=== PATIENT | male | born 1995 | race Two or more races ===

== ENCOUNTER 2020-06-06 15:22 | Emergency (ER) | payer SELFPAY ==
[~2020-06-06] VITALS: Ht 177.8 cm; Wt 104.5 kg
[2020-06-06] MEDS ORDERED: IBUPROFEN 400 MG TABLET. PO ONE (16:00)
[2020-06-06] MEDS ORDERED: ACETAMINOPHEN 500 MG TABLET PO ONE (16:00)
--- NOTE | 2020-06-06 16:26 | RAD ---
EXAM: CHEST AP ONLY INDICATION: Reason: fever, cough, suspected COVID / Spl. Instructions: / History: . TECHNIQUE: Single view COMPARISON: None FINDINGS: The heart size is normal. The great vessels appear unremarkable. There is no hilar or mediastinal mass. Lungs show ovoid opacity in the superior right lung in the setting of hypoventilatory changes. There is no pleural effusion or pneumothorax. There are no significant osseous abnormalities. IMPRESSION: Right upper lobe masslike opacity, possibly representing consolidation of lung. This can be further evaluated with CT, preferably with IV contrast if clinically warranted. At minimum, radiographic follow-up to resolution is recommended. Electronically signed by: Saroj Rivas MD (06/06/2020 4:23 PM) [facility] [place]
--- NOTE | 2020-06-06 16:57 | PHYS DOC ---
Past Medical History Past Medical History: No Pertinent History Past Surgical History: No Surgical History Smoking Status: Never Smoker Alcohol Use: None General Adult EDM: Chief Complaint: FEVER HPI: HPI: Patient is a 25 year old male presented to ER today due to fever, headache, cough. Patient has been sick for about 5 days. Patient said he was exposed to a friend who tested positive for COVID-19. Patient denied any abdominal pain, no nausea vomiting. Patient denied any medical problem. No diabetic history no hypertension history. Patient is not a smoker. Review of Systems: Review of Systems: Constitutional: Positive for fever Eyes: Denies change in visual acuity. [] HENT: Denies nasal congestion or sore throat. [] Respiratory: Positive for cough, no trouble breathing Cardiovascular: Denies chest pain or edema. [] GI: Denies abdominal pain, nausea, vomiting, bloody stools or diarrhea. [] : Denies dysuria. [] Musculoskeletal: Denies back pain or joint pain. [] Integument: Denies rash. [] Neurologic: Denies headache, focal weakness or sensory changes. [] Endocrine: Denies polyuria or polydipsia. [] Lymphatic: Denies swollen glands. [] Psychiatric: Denies depression or anxiety. [] Heart Score: Risk Factors: Risk Factors: DM, Current or recent (<one month) smoker, HTN, HLP, family history of CAD, obesity. Risk Scores: Score 0 - 3: 2.5% MACE over next 6 weeks - Discharge Home Score 4 - 6: 20.3% MACE over next 6 weeks - Admit for Clinical Observation Score 7 - 10: 72.7% MACE over next 6 weeks - Early Invasive Strategies Current Medications: Current Medications Medications (Trade) Dose Ordered Sig/[facility] Start Time Stop Time Status Last Admin Dose Admin Acetaminophen (Tylenol) 1,000 mg 1X ONCE 06/06/20 16:00 06/06/20 16:01 DC Azithromycin 250 ml @ 250 mls/hr 1X ONCE 06/06/20 17:00 06/06/20 17:59 Ceftriaxone Sodium (Rocephin) 1 gm 1X ONCE 06/06/20 17:00 06/06/20 17:01 Ibuprofen (Motrin) 800 mg 1X ONCE 06/06/20 16:00 06/06/20 16:01 DC Sodium Chloride 1,000 ml @ 1,000 mls/hr 1X ONCE 06/06/20 17:00 06/06/20 17:59 Allergies: Allergies: Allergies Coded Allergies Type Severity Reaction Last Updated Verified No Known Drug Allergies 06/06/20 No Physical Exam: PE: Constitutional: Well developed, well nourished, no acute distress, non-toxic appearance. [] HENT: Normocephalic, atraumatic, bilateral external ears normal, oropharynx mois t, no oral exudates, nose normal. [] Eyes: PERRLA, EOMI, conjunctiva normal, no discharge. [] Neck: Normal range of motion, no tenderness, supple, no stridor. [] Cardiovascular:Heart rate regular rhythm, no murmur [] Lungs & Thorax: Bilateral breath sounds clear to auscultation [] Abdomen: Bowel sounds normal, soft, no tenderness, no masses, no pulsatile masses. [] Skin: Warm, dry, no erythema, no rash. [] Back: No tenderness, no CVA tenderness. [] Extremities: No tenderness, no cyanosis, no clubbing, ROM intact, no edema. [] Neurologic: Alert and oriented X 3, normal motor function, normal sensory function, no focal deficits noted. [] Psychologic: Affect normal, judgement normal, mood normal. [] Current Patient Data: Vital Signs: Vital Signs Date Time Temp Pulse Resp B/P (MAP) Pulse Ox O2 Delivery O2 Flow Rate FiO2 06/06/20 15:33 101.2 97 17 152/90 (110) 99 Room Air 101.2 EKG: EKG: [] Radiology/Procedures: Radiology/Procedures: [facility] [address] [place] [address] IMAGING REPORT Signed PATIENT: CORINA LOPEZ ACCOUNT: [id number] : 1995 LOCATION: ER AGE: 25 SEX: M EXAM STATUS: REG ER ORD. PHYSICIAN: EULALIA GIBSON DO REASON: fever, cough, suspected COVID PROCEDURE: CHEST AP ONLY EXAM: CHEST AP ONLY INDICATION: Reason: fever, cough, suspected COVID / Spl. Instructions: / History: . TECHNIQUE: Single view COMPARISON: None FINDINGS: The heart size is normal. The great vessels appear unremarkable. There is no hilar or mediastinal mass. Lungs show ovoid opacity in the superior right lung in the setting of hypoventilatory changes. There is no pleural effusion or pneumothorax. There are no significant osseous abnormalities. IMPRESSION: Right upper lobe masslike opacity, possibly representing consolidation of lung. This can be further evaluated with CT, preferably with IV contrast if clinically warranted. At minimum, radiographic follow-up to resolution is recommended. Electronically signed by: Mirza Rivas MD (06/06/2020 4:23 PM) [facility] [place] DICTATED and SIGNED BY: MIRZA RIVAS MD DATE: 06/06/20 1623 [facility] [address] [place], [place] [id number] IMAGING REPORT Signed PATIENT: CORINA LOPEZ ACCOUNT: [id number] : 1995 LOCATION: ER AGE: 25 SEX: M EXAM STATUS: REG ER ORD. PHYSICIAN: EULALIA GIBSON DO REASON: RIGHT SIDE CONSOLIDATION, FEVER PROCEDURE: CT CHEST W/CONTRAST Exam: CT of chest with contrast INDICATION: Right-sided consolidation, fever TECHNIQUE: Sequential axial images through the chest obtained following the administration of 75 mL of Omni 300 IV contrast. Sagittal and coronal reformatted images were reconstructed from the axial data and reviewed. Comparisons: Chest x-ray same day FINDINGS: Visualized portions of the thyroid are unremarkable. No enlargement is not lymph nodes. Heart size is normal. No pericardial effusion. Thoracic aorta has a normal course and caliber. Pulmonary artery is not enlarged. Airways are patent. There is a rounded areas of consolidation/ground glass opacity seen in the right and left upper lobes. Largest areas in the right upper lobe measuring approximately 3.7 x 2.4 cm. No pleural effusion or thickening. Visualized upper abdomen is unremarkable. No suspicious osseous lesions or acute fractures. IMPRESSION: Several rounded areas of consolidation/groundglass opacity in the right and left upper lobes these are favored to be infectious or inflammatory in etiology. Consider atypical/viral causes as well as septic emboli. Follow-up imaging posttreatment to ensure resolution is recommended. Exposure: One or more of the following in the visualized dose reduction techniques were utilized for this examination: 1. Automated exposure control 2. Adjustment of the MA and/or KV according to patient size 3. Use of iterative of reconstructive technique Electronically signed by: Aubrie Grewal MD (06/06/2020 6:20 PM) [id number] DICTATED and SIGNED BY: AUBRIE GREWAL MD DATE: 06/06/20 182 Course & Med Decision Making: Course & Med Decision Making Pertinent Labs and Imaging studies reviewed. (See chart for details) Patient is a 25-year-old male with fever, chest x-ray and CT scan show consolidation suspicious for COVID-19 pneumonia. Patient vital signs are stable, his oxygen saturation at [place] is on room air. Patient is in no acute distress. Patient will be discharged home with prednisone and Zithromax. Patient was given instruction about COVID-19 isolation and quarantine in [place]. Dragon Disclaimer: Dragon Disclaimer: This electronic medical record was generated, in whole or in part, using a voice recognition dictation system. Departure Departure Impression: Primary Impression: Pneumonia Additional Impression: Suspected 2019-nCoV infection Disposition: HOME, SELF-CARE Condition: STABLE Referrals: NO PCP (PCP) please follow up with your doctor next week Patient Instructions: Pneumonia, Adult Additional Instructions: Definicin Se le realiz la prueba de deteccin del COVID-19 o se le diagnostic dicha enfermedad. Es vandana infeccin ocasionada por un nuevo tipo de coronavirus. En la mayora de los casos, el COVID-19 provoca sntomas similares a los del resfriado. En algunas personas, puede ocasionar sntomas ms graves, neno problemas respiratorios. No existe un tratamiento para el virus COVID-19. El cuerpo elimina la infeccin con el tiempo. El cuidado personal ayuda a aliviar el malestar. Pasos que debe seguir 1. Cuidados personales Descanse cuando sea necesario. Los hbitos saludables pueden ayudarlo a sentirse mejor. Algunas medidas para lograr cambios incluyen lo siguiente: - Elija alimentos saludables, neno frutas y verduras. Ruthie abundante cantidad de agua ciara todo el da. - Duerma gabbi por la noche. - Si fuma, intente no hacerlo. Forada ayudar a mejorar la respiracin. - Evite el alcohol. 2. Mantenga sanos a los dems El virus puede contagiarse a otras personas. Cada vez que estornuda o tose, se liberan gotitas. Las gotitas pueden entrar en la boca, la nariz o los ojos de las personas que se encuentran cerca de usted y ocasionar la infeccin. Para reducir las probabilidades de contagiar el virus COVID-19 a otros, tenga en cuenta lo siguiente: - Qudese en casa el tiempo que el mdico se lo indique. Es posible que deba quedarse en casa hasta que la enfermedad desaparezca. Salga nicamente para recibir atencin mdica o en kelvin de urgencia. - Evite las reas pblicas, los eventos o el transporte pblico. No reanude las actividades laborales o escolares hasta que el mdico lo autorice. - Llame previamente si necesita asistir a un centro mdico. Avise que es posible que haya contrado COVID-19. Forada ayudar a que le indiquen adonde debe dirigirse. Jud pueden pedirle que use vandana mscara facial cuando vaya al consultorio. Si llama a los servicios de asistencia mdica de urgencias, avseles que es posible que haya contrado COVID-19. Mientras est en casa: - Evite el contacto directo con otras personas. Mantngase a vandana distancia aproximada de 2 metros. Si es posible, pasen la mayor parte del tiempo en vega separadas. - Use vandana mscara facial si estar en contacto directo con otras personas, por ejemplo, si compartir vandana habitacin o un vehculo. - Pida a alguien que limpie las superficies comunes de la casa. Limpie picaportes, mesadas y lavamanos con limpiadores domsticos todos los person. - Al toser o estornudar, cbrase con un pauelo de papel. Despus de usarlo, deschelo de inmediato. Si no tiene un pauelo de papel, tosa o estornude en el pliegue del codo. - Lvese las janki con frecuencia. Lvese las janki despus de estornudar o toser. Lvese con agua y jabn ciara, al menos, 20 segundos. Si no dispone de agua y jabn, use un limpiador de janki a base de alcohol. - No cocine para otros. Evite compartir objetos personales, neno tenedores, cucharas o cepillos de dientes. - Mientras est enfermo, evite el contacto directo con las mascotas. No hay indicios de si el virus se transmite a las mascotas. Esta es vandana medida de seguridad que debe tenerse en cuenta hasta que se sepa ms acerca de shruti virus. El aislamiento puede ser frustrante. La interaccin social puede ayudar. Mantngase en contacto con amigos y familiares por telfono u otros medios tecnolgicos. Puede interactuar con otras personas en el hogar, jayda mantenga vandana distancia herron de aproximadamente 2 metros. Seguimiento Las pruebas para confirmar la presencia del COVID-19 pueden demorar algunos person . Es posible que deba seguir los pasos mencionados anteriormente hasta que estn los resultados de las pruebas. Lo llamarn del consultorio mdico para saber si floyd habido algn cambio en baeza herson. Tambin le avisarn cuando pueda volver a estar cerca de otras personas. Problemas a los que debe estar atento Comunquese con el mdico si no se recupera segn lo previsto o si tiene problemas neno los siguientes: - Dificultad para respirar - Dolor de pecho - Empeoramiento de los sntomas Si catrachito que tiene vandana urgencia, llame a los servicios de asistencia mdica de urgencias de inmediato. As taken from [facility] Azithromycin (ZITHROMAX) 250 Mg Tablet 1 PKG PO UD, #6 TAB Prov: EULALIA GIBSON DO 06/06/20 Prednisone (PREDNISONE ) 10 Mg Tablet 5 TAB PO DAILY for 7 Days, #35 TAB 0 Refills Prov: EULALIA GIBSON DO 06/06/20 Justicifation of Admission Dx: Justifications for Admission: Justification of Admission Dx: N/A EULALIA GIBSON DO Jun 06, 2020 16:57
[2020-06-06] MEDS ORDERED: AZITHRMYCN 500MG IVPB FOR OMNI 250 ML IV ONE (17:00)
[2020-06-06] MEDS ORDERED: cefTRIAXone IV Push 1 GM VIAL. IVP ONE (17:00)
[2020-06-06] MEDS ORDERED: IV NORMAL SALINE 1000ML BAG 1,000 ML IV ONE (17:00)
[2020-06-06 17:19] LABS: BASO % 0 % (0-3); EOS % 0 % (0-3); HEMATOCRIT 49.9 % (39.0-53.0); HEMOGLOBIN 17.3 g/dL (13.0-17.5); LYMPH # 1.9 x10^3/uL (1.0-4.8); LYMPH % 20 % (24-48); MEAN CORPUSCULAR HEMOGLOBIN 30 pg (25-35); MEAN CORPUSCULAR HGB CONC 35 g/dL (31-37); MEAN CORPUSCULAR VOLUME 88 fL (79-100); MONO % 10 % (0-9); NEUT # 6.7 x10^3/uL (1.8-7.7); NEUT % 70 % (31-73); PLATELET COUNT 235 x10^3/uL (140-400); RED BLOOD COUNT 5.69 x10^6/uL (4.30-5.70); RED CELL DISTRIBUTION WIDTH 13.7 % (11.5-14.5); WHITE BLOOD COUNT 9.7 x10^3/uL (4.0-11.0)
[2020-06-06 17:28] LABS: PROTHROMBIN TIME PATIENT 12.4 SEC (11.7-14.0)
[2020-06-06 17:29] LABS: CALCIUM 8.7 mg/dL (8.5-10.1); CREATININE 1.2 mg/dL (0.7-1.3); GFR 73.8; POTASSIUM 3.9 mmol/L (3.5-5.1)
[2020-06-06 17:32] LABS: D-DIMER 0.46 ug/mlFEU (0.00-0.50)
[2020-06-06 17:35] LABS: ALBUMIN 4.2 g/dL (3.4-5.0); ALBUMIN/GLOBULIN RATIO 1.1 (1.0-1.7); TOTAL BILIRUBIN 0.4 mg/dL (0.2-1.0)
[2020-06-06] MEDS ORDERED: IOHEXOL 300 MG/ML 100ML VIAL. IV ONE (18:00)
--- NOTE | 2020-06-06 18:23 | RAD ---
Exam: CT of chest with contrast INDICATION: Right-sided consolidation, fever TECHNIQUE: Sequential axial images through the chest obtained following the administration of 75 mL of Omni 300 IV contrast. Sagittal and coronal reformatted images were reconstructed from the axial data and reviewed. Comparisons: Chest x-ray same day FINDINGS: Visualized portions of the thyroid are unremarkable. No enlargement is not lymph nodes. Heart size is normal. No pericardial effusion. Thoracic aorta has a normal course and caliber. Pulmonary artery is not enlarged. Airways are patent. There is a rounded areas of consolidation/ground glass opacity seen in the right and left upper lobes. Largest areas in the right upper lobe measuring approximately 3.7 x 2.4 cm. No pleural effusion or thickening. Visualized upper abdomen is unremarkable. No suspicious osseous lesions or acute fractures. IMPRESSION: Several rounded areas of consolidation/groundglass opacity in the right and left upper lobes these are favored to be infectious or inflammatory in etiology. Consider atypical/viral causes as well as septic emboli. Follow-up imaging posttreatment to ensure resolution is recommended. Exposure: One or more of the following in the visualized dose reduction techniques were utilized for this examination: 1. Automated exposure control 2. Adjustment of the MA and/or KV according to patient size 3. Use of iterative of reconstructive technique Electronically signed by: Aubrie Shoemaker MD (06/06/2020 6:20 PM) [id number]
[2020-06-06] MEDS ORDERED: AZIT250T PO (18:42)
[2020-06-06] MEDS ORDERED: PRED-220 PO (18:42)
[2020-06-06] MEDS ORDERED: methylPREDNISolone SOD SUCC PF 125 MG/2 ML VIAL. IV ONE (19:00)
[2020-06-06 19:30] VITALS: BP 134/82
--- NOTE | 2020-06-08 11:55 | NUR ---
IP: Pt notified of COVID + results via Mother. Pt does not speak [place]. Permission give by pt to give results to her. Both verbalized understanding. Informed them to self quarantine for 14 days and the health department would be in contact.
== END 2020-06-06 19:30 | disposition home or self-care (01) ==
LOC: ER 15:22
DX: U07.1 COVID-19 (principal); J18.9 Pneumonia, unspecified organism; R50.9 Fever, unspecified; R05 Cough; R51 Headache
CPT/HCPCS: 36415; 71045; 71260; 80053; 83605; 85025; 85379; 85610; 85730; 87040; 96365; 96375; 99285; C9803; J0456; J0696; J2930; J7030; Q9967; U0003

== ENCOUNTER 2020-06-09 05:09 | Emergency (ER) | payer SELFPAY ==
[~2020-06-09] VITALS: Ht 172.7 cm; Wt 90.9 kg
[~2020-06-09 05:09] MED LIST: AZIT250T PO; PRED-220 PO
[2020-06-09] MEDS ORDERED: PROCHLORPERAZINE 10 MG/2 ML VIAL. IM ONE (06:45)
[2020-06-09] MEDS ORDERED: KETOROLAC 60 MG/2 ML VIAL. IM ONE (06:45)
[2020-06-09] MEDS ORDERED: diphenhydrAMINE 50 MG/ML VIAL IM ONE (06:45)
[2020-06-09] MEDS ORDERED: PROC10TA57 PO (07:18)
--- NOTE | 2020-06-09 07:18 | PHYS DOC ---
Past Medical History Past Medical History: No Pertinent History Past Surgical History: No Surgical History Smoking Status: Never Smoker Alcohol Use: None General Adult EDM: Chief Complaint: Headache HPI: HPI: Patient is a 25 year old with a chief complaint of headache. Patient has been sick for approximately 8 days. Patient has had a fever and a cough which is improved with his denies shortness of breath. Patient was seen here 3 days ago and just got back his COVID-19 results which was positive. Patient states he still having fever and has some intermittent headache with dizziness. Patient states the pain is worse with fever. Patient took some Tylenol and ibuprofen with minimal relief. Patient denies any vomiting or diarrhea. Pain is described as moderate and nonradiating global Review of Systems: Review of Systems: Constitutional: Complains of fever Eyes: Denies change in visual acuity. [] HENT: Has some nasal congestion Respiratory: Complains of mild cough but no shortness of breath Cardiovascular: Denies chest pain or edema. [] GI: Denies abdominal pain, nausea, vomiting, bloody stools or diarrhea. [] : Denies dysuria. [] Musculoskeletal: Complains of myalgias Integument: Denies rash. [] Neurologic: Complains of headache but no, focal weakness or sensory changes. [] Endocrine: Denies polyuria or polydipsia. [] Lymphatic: Denies swollen glands. [] Psychiatric: Denies depression or anxiety. [] Heart Score: Risk Factors: Risk Factors: DM, Current or recent (<one month) smoker, HTN, HLP, family history of CAD, obesity. Risk Scores: Score 0 - 3: 2.5% MACE over next 6 weeks - Discharge Home Score 4 - 6: 20.3% MACE over next 6 weeks - Admit for Clinical Observation Score 7 - 10: 72.7% MACE over next 6 weeks - Early Invasive Strategies Current Medications: Current Medications Medications (Trade) Dose Ordered Sig/Praful Start Time Stop Time Status Last Admin Dose Admin Diphenhydramine HCl (Benadryl) 25 mg 1X ONCE 06/09/20 06:45 06/09/20 06:46 DC 06/09/20 06:50 25 MG Ketorolac Tromethamine (Toradol Im) 60 mg 1X ONCE 06/09/20 06:45 06/09/20 06:46 DC 7/29/20 06:49 60 MG Prochlorperazine Edisylate (Compazine) 10 mg 1X ONCE 06/09/20 06:45 06/09/20 06:46 DC 06/09/20 06:49 10 MG Allergies: Allergies: Allergies Coded Allergies Type Severity Reaction Last Updated Verified No Known Drug Allergies 06/06/20 No Physical Exam: PE: Constitutional: Well developed, well nourished, no acute distress, non-toxic appearance. HENT: No trismus, external ears normal Eyes: Conjunctiva clear, EOMI Neck: Normal range of motion, no tenderness, supple, no stridor. No meningeal signs Cardiovascular: Regular rate/rhythm, peripheral pulse intact, EXTRUSION MANAGER intact Lungs & Thorax: No respiratory distress Abdomen: No distension Skin: Diffuse: Intact, no rash Back: Full ROM Extremities: Normal inspection, no edema Neurologic: Alert and oriented X 3, normal motor function, , no focal deficits noted. Psychologic: Affect normal, judgement normal, mood normal. Current Patient Data: Vital Signs: Vital Signs Date Time Temp Pulse Resp B/P (MAP) Pulse Ox O2 Delivery O2 Flow Rate FiO2 06/09/20 05:40 99.1 90 20 139/81 (100) 99 Room Air 99.1 EKG: EKG: [] Radiology/Procedures: Radiology/Procedures: [] Course & Med Decision Making: Course & Med Decision Making Pertinent Labs and Imaging studies reviewed. (See chart for details) [] Patient nontoxic-appearing no respiratory distress no meningeal signs normal neurological exam. Slight symptoms most likely due to his COVID-19. Patient is stable for discharge. Return precautions given doubt meningitis Jeyson Disclaimer: Jeyson Disclaimer: This electronic medical record was generated, in whole or in part, using a voice recognition dictation system. Departure Departure Impression: Primary Impression: COVID-19 Additional Impression: Headache Disposition: 01 HOME, SELF-CARE Condition: STABLE Referrals: NO PCP (PCP) 2-3 days pcp 2-3 days Patient Instructions: Fever, General Headache Without Cause Additional Instructions: EMERGENCY DEPARTMENT GENERAL DISCHARGE INSTRUCTIONS THANK YOU for coming to [facility] Emergency Department (ED) today and trusting us with your care. We trust that you had a positive experience in our Emergency Department. If you wish to speak to the department Management you can contact the anthropology department chair at . YOUR FOLLOW UP INSTRUCTIONS ARE FOLLOWS: Do you have a private doctor? If you do not have a private doctor, please ask for a resource list of physicians or clinics that may be able to assist you with follow up care. The Emergency Physician has interpreted your x-rays. The X-ray specialist will also review them. If there is a change in the findings you will be notified in 48 hours when at all possible. A lab test or lab culture may have been done, your results will be reviewed and you will be notified if you need a change in treatment. ADDITIONAL INSTRUCTIONS AND INFORMATION Your care today has been supervised by a physician who is specially trained in emergency care. Many problems require more than one evaluation for a complete diagnosis and treatment. We recommend that you schedule your follow up appointment as recommended to ensure complete treatment of your illness or injury. If you are unable to obtain follow up care and continue to have a problem, or if your condition worsens we recommend that you return to the ED. We are not able to safely determine your condition over the phone nor are we able to give sound medical advice over the phone. For these safety reasons, if you call for medical advice we will ask you to come to the ED for further evaluation If you have any questions regarding these discharge instructions please call the ED at . SAFETY INFORMATION In the interest of safety, wellness, and injury prevention; we encourage you to wear your seatbelt, if you smoke; quit smoking, and we encourage your family to use protective helmet for bicycling and other sporting events that present an increased risk for head injury. IF YOUR SYMPTOMS WORSEN OR NEW SYMPTOMS DEVELOP, OR YOU HAVE CONCERNS ABOUT YOUR CONDITION; OR IF YOUR CONDITION WORSENS WHILE YOU ARE WAITING FOR YOUR FOLLOW UP APPOINTMENT; EITHER CONTACT YOUR PRIMARY CARE DOCTOR, THE PHYSICIAN WHOSE NAME AND NUMBER YOU WERE GIVEN, OR RETURN TO THE ED IMMEDIATELY. Definicin Se le realiz la prueba de deteccin del COVID-19 o se le diagnostic dicha enfermedad. Es vandana infeccin ocasionada por un nuevo tipo de coronavirus. En la mayora de los casos, el COVID-19 provoca sntomas similares a los del resfriado. En algunas personas, puede ocasionar sntomas ms graves, neno problemas respiratorios. No existe un tratamiento para el virus COVID-19. El cuerpo elimina la infeccin con el tiempo. El cuidado personal ayuda a aliviar el malestar. Pasos que debe seguir 1. Cuidados personales Descanse cuando sea necesario. Los hbitos saludables pueden ayudarlo a sentirse mejor. Algunas medidas para lograr cambios incluyen lo siguiente: - Elija alimentos saludables, neno frutas y verduras. Ruthie abundante cantidad de agua ciara todo el da. - Duerma gabbi por la noche. - Si fuma, intente no hacerlo. Aneth ayudar a mejorar la respiracin. - Evite el alcohol. 2. Mantenga sanos a los dems El virus puede contagiarse a otras personas. Cada vez que estornuda o tose, se liberan gotitas. Las gotitas pueden entrar en la boca, la nariz o los ojos de las personas que se encuentran cerca de usted y ocasionar la infeccin. Para reducir las prob abilidades de contagiar el virus COVID-19 a otros, tenga en cuenta lo siguiente: - Qudese en casa el tiempo que el mdico se lo indique. Es posible que deba quedarse en casa hasta que la enfermedad desaparezca. Salga nicamente para recibir atencin mdica o en kelvin de urgencia. - Evite las reas pblicas, los eventos o el transporte pblico. No reanude las actividades laborales o escolares hasta que el mdico lo autorice. - Llame previamente si necesita asistir a un centro mdico. Avise que es pos ible que haya contrado COVID-19. Aneth ayudar a que le indiquen adonde debe dirigirse. Jud pueden pedirle que use vandana mscara facial cuando vaya al consultorio. Si llama a los servicios de asistencia mdica de urgencias, avseles que es posible que haya contrado COVID-19. Mientras est en casa: - Evite el contacto directo con otras personas. Mantngase a vandana distancia aproximada de 2 metros. Si es posible, pasen la mayor parte del tiempo en vega separadas. - Use vandana mscara facial si estar en contacto directo con otras personas, por ejemplo, si compartir vandana habitacin o un vehculo. - Pida a alguien que limpie las superficies comunes de la casa. Limpie picaportes, mesadas y lavamanos con limpiadores domsticos todos los person. - Al toser o estornudar, cbrase con un pauelo de papel. Despus de usarlo, deschelo de inmediato. Si no tiene un pauelo de papel, tosa o estornude en el pliegue del codo. - Lvese las janki con frecuencia. Lvese las janki despus de estornudar o toser. Lvese con agua y jabn ciara, al menos, 20 segundos. Si no dispone de agua y jabn, use un limpiador de janki a base de alcohol. - No cocine para otros. Evite compartir objetos personales, neno tenedores, cucharas o cepillos de dientes. - Mientras est enfermo, evite el contacto directo con las mascotas. No hay indicios de si el virus se transmite a las mascotas. Esta es vandana medida de seguridad que debe tenerse en cuenta hasta que se sepa ms acerca de shruti virus. El aislamiento puede ser frustrante. La interaccin social puede ayudar. Mantngase en contacto con amigos y familiares por telfono u otros medios tecnolgicos. Puede interactuar con otras personas en el hogar, jayda mantenga vandana distancia herron de aproximadamente 2 metros. Seguimiento Las pruebas para confirmar la presencia del COVID-19 pueden demorar algunos person. Es posible que deba seguir los pasos mencionados anteriormente hasta que estn los resultados de las pruebas. Lo llamarn del consultorio mdico para saber si floyd habido algn cambio en baeza herson. Tambin le avisarn cuando pueda volver a estar cerca de otras personas. Problemas a los que debe estar atento Comunquese con el mdico si no se recupera segn lo previsto o si tiene problemas neno los siguientes: - Dificultad para respirar - Dolor de pecho - Empeoramiento de los sntomas Si catrachito que tiene vandana urgencia, llame a los servicios de asistencia mdica de urgencias de inmediato. As taken from [employer] Prochlorperazine Maleate (Compazine) 10 Mg Tablet 10 MG PO Q8-12HRS PRN for HEADACHE, #20 TAB Prov: KARYNA GUDINO MD 06/09/20 Justicifation of Admission Dx: Justifications for Admission: Justification of Admission Dx: N/A KARYNA GUDINO MD Jun 09, 2020 07:18
[2020-06-09 08:21] VITALS: BP 160/93
== END 2020-06-09 08:21 | disposition home or self-care (01) ==
LOC: ER 05:09
DX: U07.1 COVID-19 (principal); R50.9 Fever, unspecified; R51 Headache; R05 Cough
CPT/HCPCS: 96372; 99284; J0780; J1200; J1885

== ENCOUNTER 2020-06-11 02:44 | Emergency (ER) | payer SELFPAY ==
[~2020-06-11] VITALS: Ht 172.7 cm; Wt 90.9 kg
[~2020-06-11 02:44] MED LIST changes: +PROC10TA57 PO
[2020-06-11 03:00] VITALS: BP 159/89
--- NOTE | 2020-06-11 03:59 | RAD ---
Chest AP portable at 0327: Reason for examination: Covid. Pneumonia. Comparison is made to previous study dated 06/06/2020. The heart size is normal. Mediastinum is unremarkable. Lung reveles show presence of patchy infiltrates bilaterally. There has been progression since previous exam. No pleural effusions or pneumothorax are seen. No acute bony abnormalities are seen. IMPRESSION: Patchy bilateral infiltrates with worsening since previous exam. Electronically signed by: Evonne Iqbal MD (06/11/2020 3:56 AM) [id number]
[2020-06-11] MEDS ORDERED: VENTOLIN HFA18 GM INH (04:06)
[2020-06-11] MEDS ORDERED: BENZ100C PO (04:06)
--- NOTE | 2020-06-11 04:06 | PHYS DOC ---
Past Medical History Past Medical History: Other Additional Past Medical Histor: COVID-19 Past Surgical History: No Surgical History Smoking Status: Never Smoker Alcohol Use: None General Adult EDM: Chief Complaint: SHORTNESS OF BREATH HPI: HPI: Patient is a 25 year old male who presents with continued shortness of breath and cough. He has been sick for the last couple of weeks. He tested positive for raymond virus earlier this week. He continues to have symptoms and is not feeling well. They came in today because his symptoms have not improved. He is able to walk around without any difficulty and has continued to do his normal activities at home. Review of Systems: Review of Systems: General: reports fever, chills, sweats, fatigue Eyes: Denies drainage, blurred vision, eye redness HENT: Denies rhinorrhea, sore throat, earache Respiratory: reports cough, shortness of breath, wheezing Cardiac: Denies edema, palpitations, chest pain GI: Denies abdominal pain, Nausea, vomiting MSK: Denies back pain, neck pain Skin: Denies rash, jaundice Neuro: Denies headache, dizziness Psychiatric: Denies SI/HI Heart Score: Risk Factors: Risk Factors: DM, Current or recent (<one month) smoker, HTN, HLP, family history of CAD, obesity. Risk Scores: Score 0 - 3: 2.5% MACE over next 6 weeks - Discharge Home Score 4 - 6: 20.3% MACE over next 6 weeks - Admit for Clinical Observation Score 7 - 10: 72.7% MACE over next 6 weeks - Early Invasive Strategies Allergies: Allergies: Allergies Coded Allergies Type Severity Reaction Last Updated Verified No Known Drug Allergies 06/06/20 No Physical Exam: PE: General: Awake, alert, NAD. Well Nourished, well hydrated. Cooperative HEENT: Atraumatic, EOMI, PERRL, airway patent, moist oral mucosa Neck: Supple, trachea midline Respiratory: CTA bilaterally, normal effort, no wheezing/crackles CV: RRR, no murmur, cap refill <2 GI: Soft, nondistended, nontender, no masses MSK: No obvious deformities Skin: Warm, dry, intact Neuro: A&O x3, speech NL, sensory and motor grossly intact, no focal deficits Psych: Normal affect, normal mood, not suicidal or homicidal Current Patient Data: Vital Signs: Vital Signs Date Time Temp Pulse Resp B/P (MAP) Pulse Ox O2 Delivery O2 Flow Rate FiO2 06/11/20 03:00 99.0 111 18 154/88 (110) 97 99.0 EKG: EKG: [] Radiology/Procedures: Radiology/Procedures: [] Course & Med Decision Making: Course & Med Decision Making Pertinent Labs and Imaging studies reviewed. (See chart for details) Patient is a 25-year-old male who presents to the emergency room with continued symptoms of coronavirus. Patient is oxygenating well here in the emergency room and overall appears very well. Chest x-ray appears similar to x-ray from previous. Labs will not be repeated at this time as he just had labs 2 days ago[address] We will place him on an inhaler and cough medicine. We discussed continued quarantine. Patient's test results and vitals while in the ED were fully reviewed and discussed with the patient. Patient is stable and at this time does not need admission to the hospital. We have discussed strict return precautions and the importance of following up with their Primary Care Physicia n. Patient stated understanding and was given an opportunity to ask any questions. Patient is in agreement with plan. Jeyson Disclaimer: Sell My Times[employer] NOW Disclaimer: This electronic medical record was generated, in whole or in part, using a voice recognition dictation system. Departure Departure Impression: Primary Impression: Coronavirus infection Disposition: 01 HOME, SELF-CARE Condition: STABLE Referrals: NO PCP (PCP) Patient Instructions: Shortness of Breath Additional Instructions: [facility] you for [facility]. We appreciate you trusting us with your care. If any additional problems come up please don't hesitate to return to visit us. Follow up with your primary care provider so they can plan additional care if needed and know about the problem that you had today. If symptoms worsen come back to the Emergency Department. Any concerning symptoms that start such as chest pain, shortness of air, weakness or numbness on one side of the body, running high fevers or any other concerning symptoms return to the ER. You have a viral syndrome which may include symptoms like muscle aches, fevers, chills, runny nose, cough, sneezing, sore throat, nausea, vomiting, or diarrhea. One of the potential viruses that you may have is SARS-CoV-2, the virus that causes COVID-19, also known as the Coronavirus. You are just as likely to have a different viral infection such as the common cold, flu, etc. Most patients with the Coronavirus have mild symptoms and recover on their own. Resting, staying hydrated, and sleep based on known cases can be helpful. As of todays visit, you are well enough to go home and treat your symptoms with oral fluids and over the counter medications. Coronavirus testing is not performed on most people with mild symptoms who are being discharged from the emergency department. If Coronavirus testing was performed today the results will not be available for possibly up to 3-4 days. If your result is positive you will be contacted. Please follow the following precautions at home: 1. Stay home except to get medical care. 2. As advised by the CDC, we recommend that you stay in your home and minimize contact with other people. We do not want you to spread the infection. 3. Those who are older or have significant medical issues may have more severe symptoms from this infection. We recommend self-isolation FOR AT LEAST 7 DAYS after your 1st day of symptoms. AFTER you feel better please wait AT LEAST ANOTHER WEEK before returning to regular activities and being around other people. 4. IF you become sicker and have difficulty breathing, chest pain, are unable to eat/drink, severe vomiting, diarrhea, or weakness you may need to return to the Emergency Department. 5. You should restrict activities outside of your home, except for getting medical care. DO NOT go to work, school, or public areas. Avoid using public transportation, ride sharing, or taxis. 6. Separate yourself from other people in your home. You should use a separate bathroom if possible. 7. Avoid sharing personal household items such as dishes, cups, eating utensils, towels, etc. 8. Clean all high touch surfaces every day (door knobs, counter tops, etc). Use a household cleaning spray or wipe per label instructions. 9. Clean your hands often. Wash your hands with soap and water for at least 20 seconds. 10. Cover your mouth and nose when you cough or sneeze. 11. Throw used tissues in the trash and immediately wash your hands. For additional resources please visit the CDC website or the [facility] ([phone]), you may also call 211 for further information. Scripts Benzonatate (TESSALON PERLE) 100 Mg Capsule 1 CAP PO TID for cough, #21 CAP Prov: MAYELIN ADDISON MD 06/11/20 Albuterol Sulfate (VENTOLIN HFA INHALER) 18 Gm Hfa.aer.ad 2 PUFF INH Q4HRS PRN for SHORTNESS OF BREATH, #1 INHALER 0 Refills Prov: MAYELIN ADDISON MD 06/11/20 Justicifation of Admission Dx: Justifications for Admission: Justification of Admission Dx: No MAYELIN ADDISON MD Jun 11, 2020 04:06
== END 2020-06-11 04:30 | disposition home or self-care (01) ==
LOC: ER 02:44
DX: U07.1 COVID-19 (principal)
CPT/HCPCS: 71045; 99283

== ENCOUNTER 2020-06-13 02:47 | Emergency (ER) | payer SELFPAY ==
[~2020-06-13] VITALS: Ht 177.8 cm; Wt 82.0 kg
[~2020-06-13 02:47] MED LIST changes: +BENZ100C PO; +VENTOLIN HFA18 GM INH
[2020-06-13] MEDS ORDERED: IV NORMAL SALINE 1000ML BAG 1,000 ML IV ONE (03:30)
[2020-06-13] MEDS ORDERED: DEXAMETHASONE SOD PHOS 4 MG/ML VIAL IVP ONE (03:30)
[2020-06-13] MEDS ORDERED: ACETAMINOPHEN 500 MG TABLET PO ONE (03:30)
--- NOTE | 2020-06-13 04:03 | PHYS DOC ---
Past Medical History Past Medical History: Other Additional Past Medical Histor: COVID-19 Past Surgical History: No Surgical History Smoking Status: Never Smoker Alcohol Use: None Drug Use: None General Adult EDM: Chief Complaint: COUGH HPI: HPI: 25-year-old male presents with report of continued cough, fever, shortness of breath which has progressively worsened over the last several days. Patient was tested positive for COVID 19 last week. Patient has been seen multiple times here in the emergency department for same. Patient reports cough has continued. Patient reports he has been taking Tylenol and ibuprofen for his fever however continues to be febrile. Patient does report positive sick contacts at work. Denies leg swelling or calf tenderness. Reports some chest discomfort. Review of Systems: Review of Systems: Constitutional: Reports fever, chills, and generalized malaise Eyes: Denies redness or eye pain HENT: Denies nasal congestion or sore throat Respiratory: Reports cough and shortness of breath Cardiovascular: Denies chest pain; reports chest discomfort GI: Denies abdominal pain, nausea, or vomiting : Denies dysuria or hematuria Musculoskeletal: Denies back pain or joint pain Integument: Denies rash or skin lesions Neurologic: Denies headache or sensory changes; reports generalized weakness Complete systems were reviewed and found to be within normal limits, except as documented in this note. Current Medications: Current Medications Medications (Trade) Dose Ordered Sig/Praful Start Time Stop Time Status Last Admin Dose Admin Acetaminophen (Tylenol) 500 mg 1X ONCE 06/13/20 03:30 06/13/20 03:31 DC 06/13/20 03:51 500 MG Dexamethasone Sodium Phosphate (Decadron) 10 mg 1X ONCE 06/13/20 03:30 06/13/20 03:31 DC 06/13/20 03:51 10 MG Sodium Chloride 1,000 ml @ 1,000 mls/hr 1X ONCE 06/13/20 03:30 06/13/20 04:29 06/13/20 03:51 1,000 MLS/HR Allergies: Allergies: Allergies Coded Allergies Type Severity Reaction Last Updated Verified No Known Drug Allergies 06/06/20 No Physical Exam: PE: Constitutional: Well developed, well nourished, no acute distress, non-toxic appearance HENT: Normocephalic, atraumatic Eyes: Conjunctiva normal, no discharge Neck: Normal range of motion, supple Lungs & Thorax: Tachypnea, equal chest rise and fall Abdomen: Soft, no tenderness Skin: Warm, diaphoretic, no erythema, no rash Extremities: No tenderness, ROM intact, no edema Neurologic: Alert and oriented X 3, no focal deficits noted Psychologic: Affect normal, judgment normal EKG: EKG: @0337 NSR at 92bpm, NO ST elevation, QRS 96ms, QT/QTc 340/425ms Radiology/Procedures: Radiology/Procedures: PROCEDURE: CT ANGIOGRAPHY CHEST INDICATION: Reason: COVID positive, worsening dyspnea r/o PE, OMNI 350, 90 ML IV / Spl. Instructions: / History: COMPARISON: Chest x-ray from June 11, 2020 TECHNIQUE: Axial CT images obtained through the chest. Intravenous contrast utilized. Angiogram 3D images processed per protocol. One or more of the following individualized dose reduction techniques were utilized for this examination: 1. Automated exposure control; 2. Adjustment of the mA and/or kV according to patient size; 3. Use of iterative reconstruction technique. FINDINGS: Multifocal opacities throughout the bilateral lungs including groundglass and more focal alveolar component. No evidence of pneumothorax. Partially visualized liver is low density. Nonspecific but can be seen with fatty infiltration. There are some scattered mildly enlarged lymph nodes within the mediastinum. Ascending thoracic aorta is obscured by motion without aneurysm seen in the visualized portions of thoracic aorta. Mild wedging of a couple of the lower thoracic vertebral bodies. IMPRESSION: No embolus in the main, right main or left main pulmonary artery but nondiagnostic more peripherally secondary to severe motion. Multifocal opacities throughout the bilateral lungs which could be infectious in nature. Lymphadenopathy within the mediastinum and hilum. Could be reactive to the pulmonic process but follow-up could be obtained to ensure this appropriately resolves. Liver is low density which can be seen with fatty infiltration. Electronically signed by: Ori Raymond MD (06/13/2020 6:13 AM) [id number] Course & Med Decision Making: Course & Med Decision Making Pertinent Labs and Imaging studies reviewed. (See chart for details) Patient with known COVID-19 presents with continued worsening of symptoms including fever. Fever addressed upon arrival. Patient also complaining of some chest discomfort but denies pain. No cardiac risk factors. Symptoms are related to his respiratory illness. Labs obtained and posted to chart. EKG stable. CTA obtained for rule out PE. No findings consistent for PE noted. Patient with continued imaging findings consistent for COVID-19. Sats stable throughout ER stay. Incentive spirometer provided for use at home with education. Patient stable for discharge with outpatient follow-up with PCP. Discussed findings and plan with patient, who acknowledges understanding and agreement. Jeyson Disclaimer: Jeyson Disclaimer: This electronic medical record was generated, in whole or in part, using a voice recognition dictation system. Departure Departure Impression: Primary Impression: COVID-19 Additional Impression: Fever Qualified Codes: R50.9 - Fever, unspecified Disposition: HOME, SELF-CARE Condition: STABLE Referrals: NO PCP (PCP) Patient Instructions: Fever, Adult, [id number], Incentive Spirometer, Viral Syndrome Additional Instructions: Definicin Se le realiz la prueba de deteccin del COVID-19 o se le diagnostic dicha enfermedad. Es vandana infeccin ocasionada por un nuevo tipo de coronavirus. En la mayora de los casos, el COVID-19 provoca sntomas similares a los del resfriado. En algunas personas, puede ocasionar sntomas ms graves, neno problemas respiratorios. No existe un tratamiento para el virus COVID-19. El cuerpo elimina la infeccin con el tiempo. El cuidado personal ayuda a aliviar el malestar. Pasos que debe seguir 1. Cuidados personales Descanse cuando sea necesario. Los hbitos saludables pueden ayudarlo a sentirse mejor. Algunas medidas para lograr cambios incluyen lo siguiente: - Elija alimentos saludables, neno frutas y verduras. Ruthie abundante cantidad de agua ciara todo el da. - Duerma gabbi por la noche. - Si fuma, intente no hacerlo. [place] ayudar a mejorar la respiracin. - Evite el alcohol. 2. Mantenga sanos a los dems El virus puede contagiarse a otras personas. Cada vez que estornuda o tose, se liberan gotitas. Las gotitas pueden entrar en la boca, la nariz o los ojos de las personas que se encuentran cerca de usted y ocasionar la infeccin. Para reducir las proba bilidades de contagiar el virus COVID-19 a otros, tenga en cuenta lo siguiente: - Qudese en casa el tiempo que el mdico se lo indique. Es posible que deba quedarse en casa hasta que la enfermedad desaparezca. Salga nicamente para recibir atencin mdica o en kelvin de urgencia. - Evite las reas pblicas, los eventos o el transporte pblico. No reanude las actividades laborales o escolares hasta que el mdico lo autorice. - Llame previamente si necesita asistir a un centro mdico. Avise que es posi ble que haya contrado COVID-19. [place] ayudar a que le indiquen adonde debe dirigirse. Jud pueden pedirle que use vandana mscara facial cuando vaya al consultorio. Si llama a los servicios de asistencia mdica de urgencias, avseles que es posible que haya contrado COVID-19. Mientras est en casa: - Evite el contacto directo con otras personas. Mantngase a vandana distancia a proximada de 2 metros. Si es posible, pasen la mayor parte del tiempo en vega separadas. - Use vandana mscara facial si estar en contacto directo con otras personas, por ejemplo, si compartir vandana habitacin o un vehculo. - Pida a alguien que limpie las superficies comunes de la casa. Limpie picaportes, mesadas y lavamanos con limpiadores domsticos todos los person. - Al toser o estornudar, cbrase con un pauelo de papel. Despus de usarlo, deschelo de inmediato. Si no tiene un pauelo de papel, tosa o estornude en el pliegue del codo. - Lvese las janki con frecuencia. Lvese las janki despus de estornudar o toser. Lvese con agua y jabn ciara, al menos, 20 segundos. Si no dispone de agua y jabn, use un limpiador de janki a base de alcohol. - No cocine para otros. Evite compartir objetos personales, neno tenedores, cucharas o cepillos de dientes. - Mientras est enfermo, evite el contacto directo con las mascotas. No hay indicios de si el virus se transmite a las mascotas. Esta es vandana medida de seguridad que debe tenerse en cuenta hasta que se sepa ms acerca de shruti virus. El aislamiento puede ser frustrante. La interaccin social puede ayudar. Mantngase en contacto con amigos y familiares por telfono u otros medios tecnolgicos. Puede interactuar con otras personas en el hogar, jayda mantenga vandana distancia herron de aproximadamente 2 metros. Seguimiento Las pruebas para confirmar la presencia del COVID-19 pueden demorar algunos person. Es posible que deba seguir los pasos mencionados anteriormente hasta que estn los resultados de las pruebas. Lo llamarn del consultorio mdico para saber si floyd habido algn cambio en baeza herson. Tambin le avisarn cuando pueda volver a estar cerca de otras personas. Problemas a los que debe estar atento Comunquese con el mdico si no se recupera segn lo previsto o si tiene problemas neno los siguientes: - Dificultad para respirar - Dolor de pecho - Empeoramiento de los sntomas Si catrachito que tiene vandana urgencia, llame a los servicios de asistencia mdica de urgencias de inmediato. As taken from [employer] Justicifation of Admission Dx: Justifications for Admission: Justification of Admission Dx: N/A COVID-19 Assessment: COVID-19 Patient Risks: Age 65 or older: No Sign of co-morbidity: No Exp to person + for COVID: Yes Exp to PUI: No Travel from affected area: No Lower respiratory symptoms: Yes Fever: Yes PPE Use: Full PPE with N95 mask or PAPR: Yes PERC Rule for PE PERC Rule for PE PERC Rule for PE Response (Comments) Value Age > 50: No 0 HR > 100: Yes 1 Sa02 on room air <95%: No 0 Unilateral leg swelling: No 0 Hemoptysis: No 0 Recent surgery or trauma: No 0 Prior PE or DVT: No 0 Hormone use: No 0 Total 1 LINDSAY LEWIS DO Jun 13, 2020 04:03
[2020-06-13 04:37] LABS: BASO % 0 % (0-3); EOS % 0 % (0-3); HEMATOCRIT 44.5 % (39.0-53.0); HEMOGLOBIN 15.4 g/dL (13.0-17.5); LYMPH # 1.4 x10^3/uL (1.0-4.8); LYMPH % 13 % (24-48); MEAN CORPUSCULAR HEMOGLOBIN 30 pg (25-35); MEAN CORPUSCULAR HGB CONC 35 g/dL (31-37); MEAN CORPUSCULAR VOLUME 86 fL (79-100); MONO # 0.9 x10^3/uL (0.0-1.1); MONO % 8 % (0-9); NEUT # 8.9 x10^3/uL (1.8-7.7); NEUT % 79 % (31-73); PLATELET COUNT 227 x10^3/uL (140-400); RED BLOOD COUNT 5.19 x10^6/uL (4.30-5.70); RED CELL DISTRIBUTION WIDTH 13.3 % (11.5-14.5); WHITE BLOOD COUNT 11.3 x10^3/uL (4.0-11.0)
[2020-06-13 04:47] LABS: PROTHROMBIN TIME PATIENT 13.4 SEC (11.7-14.0)
[2020-06-13 04:48] LABS: CALCIUM 8.5 mg/dL (8.5-10.1); CREATININE 1.1 mg/dL (0.7-1.3); GFR 81.6; POTASSIUM 3.7 mmol/L (3.5-5.1)
[2020-06-13] MEDS ORDERED: CONTRAST GIVEN. MC PRN (05:00)
[2020-06-13 05:01] LABS: CREATINE KINASE 92 U/L (39-308)
[2020-06-13] MEDS ORDERED: IOHEXOL 300 MG/ML 100ML VIAL. IV ONE (05:15)
[2020-06-13 05:26] LABS: ALBUMIN 3.2 g/dL (3.4-5.0); ALBUMIN/GLOBULIN RATIO 0.9 (1.0-1.7); MAGNESIUM 1.7 mg/dL (1.8-2.4); TOTAL BILIRUBIN 0.4 mg/dL (0.2-1.0); TOTAL PROTEIN 6.8 g/dL (6.4-8.2)
[2020-06-13 05:40] LABS: BILIRUBIN,URINE NEGATIVE (NEG); CLARITY,URINE CLEAR; COLOR,URINE YELLOW; NITRITE,URINE NEGATIVE (NEG); PROTEIN,URINE NEGATIVE (NEG-TRACE); UROBILINOGEN,URINE 0.2 mg/dL (0.2 mg/dL)
[2020-06-13] MEDS ORDERED: IOHEXOL 350 MG/ML 100 ML VIAL. ONE (05:43)
[2020-06-13] MEDS ORDERED: IOHEXOL 350 MG/ML 100 ML VIAL. IV ONE (05:45)
[2020-06-13 05:56] LABS: BACTERIA,URINE 0 /HPF (0-FEW); RBC,URINE 0 /HPF (0-2); SQUAMOUS EPITHELIAL CELL,UR OCC /LPF
--- NOTE | 2020-06-13 06:16 | RAD ---
INDICATION: Reason: COVID positive, worsening dyspnea r/o PE, OMNI 350, 90 ML IV / Spl. Instructions: / History: COMPARISON: Chest x-ray from June 11, 2020 TECHNIQUE: Axial CT images obtained through the chest. Intravenous contrast utilized. Angiogram 3D images processed per protocol. One or more of the following individualized dose reduction techniques were utilized for this examination: 1. Automated exposure control; 2. Adjustment of the mA and/or kV according to patient size; 3. Use of iterative reconstruction technique. FINDINGS: Multifocal opacities throughout the bilateral lungs including groundglass and more focal alveolar component. No evidence of pneumothorax. Partially visualized liver is low density. Nonspecific but can be seen with fatty infiltration. There are some scattered mildly enlarged lymph nodes within the mediastinum. Ascending thoracic aorta is obscured by motion without aneurysm seen in the visualized portions of thoracic aorta. Mild wedging of a couple of the lower thoracic vertebral bodies. IMPRESSION: No embolus in the main, right main or left main pulmonary artery but nondiagnostic more peripherally secondary to severe motion. Multifocal opacities throughout the bilateral lungs which could be infectious in nature. Lymphadenopathy within the mediastinum and hilum. Could be reactive to the pulmonic process but follow-up could be obtained to ensure this appropriately resolves. Liver is low density which can be seen with fatty infiltration. Electronically signed by: Ori Raymond MD (06/13/2020 6:13 AM) [id number]
[2020-06-13 06:30] VITALS: BP 169/97
--- NOTE | 2020-06-15 11:01 | EKG ---
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
== END 2020-06-13 06:35 | disposition home or self-care (01) ==
LOC: ER 02:47
DX: U07.1 COVID-19 (principal); R50.9 Fever, unspecified; R06.02 Shortness of breath
CPT/HCPCS: 36415; 71275; 80053; 81001; 82553; 82728; 83605; 83615; 83735; 84484; 85025; 85610; 85730; 96374; 99285; J1100; J7030; Q9967; 93005

== ENCOUNTER 2020-06-15 18:24 | Inpatient (IN) | payer OTHER ==
[~2020-06-15] VITALS: Ht 180.3 cm; Wt 103.5 kg
--- NOTE | 2020-06-15 18:46 | PHYS DOC ---
Past Medical History Past Medical History: Other Additional Past Medical Histor: COVID-19 Past Surgical History: No Surgical History Smoking Status: Never Smoker Alcohol Use: None Drug Use: None General Adult EDM: Chief Complaint: SHORTNESS OF BREATH HPI: HPI: Patient is a 25 year old male presents with a two-week history of fever, cough, myalgias. Patient recently diagnosed with COVID-19. Patient states he is still having fever and is short of breath. Patient states symptoms are worse with exertion. Patient has no vomiting or diarrhea. Patient denies any chest pain. Symptoms are better with Tylenol and nonradiating. Review of Systems: Review of Systems: Constitutional: Reports fever Eyes: Denies change in visual acuity. [] HENT: Reports congestion Respiratory: Reports cough and shortness of breath Cardiovascular: Denies chest pain or edema. [] GI: Denies abdominal pain, nausea, vomiting, bloody stools or diarrhea. [] : Denies dysuria. [] Musculoskeletal: Complains of myalgias Integument: Denies rash. [] Neurologic: Denies headache, focal weakness or sensory changes. [] Endocrine: Denies polyuria or polydipsia. [] Lymphatic: Denies swollen glands. [] Psychiatric: Denies depression or anxiety. [] Heart Score: Risk Factors: Risk Factors: DM, Current or recent (<one month) smoker, HTN, HLP, family history of CAD, obesity. Risk Scores: Score 0 - 3: 2.5% MACE over next 6 weeks - Discharge Home Score 4 - 6: 20.3% MACE over next 6 weeks - Admit for Clinical Observation Score 7 - 10: 72.7% MACE over next 6 weeks - Early Invasive Strategies Allergies: Allergies: Allergies Coded Allergies Type Severity Reaction Last Updated Verified No Known Drug Allergies 06/06/20 No Physical Exam: PE: Constitutional: Well developed, well nourished, no acute distress, non-toxic appearance. [] HENT: Normocephalic, atraumatic, bilateral external ears normal, no trismus nose normal. [] Eyes: PERRLA, EOMI, conjunctiva normal, no discharge. [] Neck: Normal range of motion, no tenderness, supple, no stridor. [] No meningeal signs Cardiovascular:Heart rate regular rhythm, no murmur [] Lungs & Thorax: DIMINISHED BS b/l Abdomen: Bowel sounds normal, soft, no tenderness, no masses, no pulsatile masses. [] Skin: diaphoretic Back: No tenderness, no CVA tenderness. [] Extremities: No tenderness, no cyanosis, no clubbing, ROM intact, no edema. [] Neurologic: Alert and oriented X 3, normal motor function, normal sensory function, no focal deficits noted. [] Psychologic: Affect normal, judgement normal, mood normal. [] Current Patient Data: Labs: Laboratory Tests Test 06/15/20 20:32 White Blood Count 13.5 x10^3/uL Red Blood Count 5.44 x10^6/uL Hemoglobin 16.4 g/dL Hematocrit 46.9 % Mean Corpuscular Volume 86 fL Mean Corpuscular Hemoglobin 30 pg Mean Corpuscular Hemoglobin Concent 35 g/dL Red Cell Distribution Width 13.2 % Platelet Count 256 x10^3/uL Neutrophils (%) (Auto) 87 % Lymphocytes (%) (Auto) 9 % Monocytes (%) (Auto) 4 % Eosinophils (%) (Auto) 0 % Basophils (%) (Auto) 0 % Neutrophils # (Auto) 11.6 x10^3/uL Lymphocytes # (Auto) 1.2 x10^3/uL Monocytes # (Auto) 0.6 x10^3/uL Eosinophils # (Auto) 0.0 x10^3/uL Basophils # (Auto) 0.0 x10^3/uL Segmented Neutrophils % 80 % Band Neutrophils % 2 % Lymphocytes % 15 % Monocytes % 3 % Toxic Granulation Slight Toxic Vacuolation Slight Platelet Estimate Adequate Prothrombin Time 13.1 SEC Prothromb Time International Ratio 1.0 Activated Partial Thromboplast Time 30 SEC Fibrinogen 858 mg/dL D-Dimer (Yue) 1.31 ug/mlFEU Sodium Level 136 mmol/L Potassium Level 3.8 mmol/L Chloride Level 102 mmol/L Carbon Dioxide Level 25 mmol/L Anion Gap 9 Blood Urea Nitrogen 13 mg/dL Creatinine 0.8 mg/dL Estimated GFR (Cockcroft-Gault) 117.8 BUN/Creatinine Ratio 16 Glucose Level 120 mg/dL Lactic Acid Level 1.2 mmol/L Calcium Level 8.8 mg/dL Total Bilirubin 0.5 mg/dL Aspartate Amino Transf (AST/SGOT) 44 U/L Alanine Aminotransferase (ALT/SGPT) 81 U/L Alkaline Phosphatase 77 U/L Creatine Kinase 51 U/L Troponin I Quantitative < 0.017 ng/mL Total Protein 7.4 g/dL Albumin 2.9 g/dL Albumin/Globulin Ratio 0.6 Procalcitonin < 0.10 ng/mL Current Medications Medications (Trade) Dose Ordered Sig/Praful Route PRN Reason Start Time Stop Time Status Last Admin Dose Admin Sodium Chloride 1,000 ml @ 1,000 mls/hr 1X ONCE IV 06/15/20 19:00 06/15/20 20:03 DC 06/15/20 19:11 Ketorolac Tromethamine (Toradol 15mg Vial) 15 mg 1X ONCE IVP 06/15/20 19:15 06/15/20 19:16 DC 06/15/20 19:11 Vital Signs: Vital Signs Date Time Temp Pulse Resp B/P (MAP) Pulse Ox O2 Delivery O2 Flow Rate FiO2 06/15/20 18:30 99.9 97 18 138/84 (102) 98 Nasal Cannula 3.0 99.9 EKG: EKG: [] EKG interpreted by ut normal sinus rhythm with a rate of 92 normal axis normal intervals normal ST segments Radiology/Procedures: Radiology/Procedures: [] Impression: [facility] [address] [place], [place] [id number] IMAGING REPORT Signed PATIENT: CORINA LOPEZ ACCOUNT: [id number] : 1995 LOCATION: ER AGE: 25 SEX: M EXAM STATUS: REG ER ORD. PHYSICIAN: KARYNA GUDINO MD REASON: covid pos, cough PROCEDURE: PORTABLE CHEST 1V Single view chest dated 06/15/2020. Comparison made to 06/11/2020. CLINICAL INDICATION: Covid positive. Cough. FINDINGS: single upright portable exam performed. Heart and mediastinal contours are stable. There is patchy perihilar airspace disease, similar to prior study. Increasing nodular consolidation at the right lung base. No apparent pleural effusion. No pneumothorax. IMPRESSION: Mild interval increase in bilateral airspace disease, consistent with history of viral pneumonitis. Electronically signed by: Misael Bertrand MD (06/15/2020 7:21 PM) [facility] DICTATED and SIGNED BY: MISAEL BERTRAND MD DATE: 06/15/201920 Course & Med Decision Making: Course & Med Decision Making Pertinent Labs and Imaging studies reviewed. (See chart for details) [] 25-year-old with worsening pulmonary status from COVID pneumonia. Patient was started on steroids and anticoagulation. Discussed with Dr. aCzares who will admit the patient. Dragon Disclaimer: Dragon Disclaimer: This electronic medical record was generated, in whole or in part, using a voice recognition dictation system. Departure Departure Impression: Primary Impression: Pneumonia due to COVID-19 virus Disposition: ADMITTED INPATIENT Admitting Physician: LILY (ALEXANDRA) Condition: GUARDED Referrals: NO PCP (PCP) Justicifation of Admission Dx: Justifications for Admission: Justification of Admission Dx: Yes KARYNA GUDINO MD Jun 15, 2020 18:46
[2020-06-15] MEDS ORDERED: IV NORMAL SALINE 1000ML BAG 1,000 ML IV ONE (19:00)
[2020-06-15] MEDS ORDERED: KETOROLAC 15 MG/ML VIAL. IVP ONE (19:15)
--- NOTE | 2020-06-15 19:24 | RAD ---
Single view chest dated 06/15/2020. Comparison made to 06/11/2020. CLINICAL INDICATION: Covid positive. Cough. FINDINGS: single upright portable exam performed. Heart and mediastinal contours are stable. There is patchy perihilar airspace disease, similar to prior study. Increasing nodular consolidation at the right lung base. No apparent pleural effusion. No pneumothorax. IMPRESSION: Mild interval increase in bilateral airspace disease, consistent with history of viral pneumonitis. Electronically signed by: Misael Bertrand MD (06/15/2020 7:21 PM) WENDY
[2020-06-15] MEDS ORDERED: ENOXAPARIN 40 MG/0.4 ML SYRINGE. SQ ONE (19:30)
[2020-06-15] MEDS ORDERED: DEXAMETHASONE SOD PHOS 20 MG/5 ML VIAL. IV ONE (19:30)
[2020-06-15] MEDS ORDERED: ONDANSETRON PF 4 MG/2 ML VIAL. IV PRN ×2 (19:30)
[2020-06-15 20:45] LABS: BASO % 0 % (0-3); EOS % 0 % (0-3); HEMATOCRIT 46.9 % (39.0-53.0); HEMOGLOBIN 16.4 g/dL (13.0-17.5); LYMPH # 1.2 x10^3/uL (1.0-4.8); LYMPH % 9 % (24-48); MEAN CORPUSCULAR HEMOGLOBIN 30 pg (25-35); MEAN CORPUSCULAR HGB CONC 35 g/dL (31-37); MEAN CORPUSCULAR VOLUME 86 fL (79-100); MONO # 0.6 x10^3/uL (0.0-1.1); MONO % 4 % (0-9); NEUT # 11.6 x10^3/uL (1.8-7.7); NEUT % 87 % (31-73); PLATELET COUNT 256 x10^3/uL (140-400); RED BLOOD COUNT 5.44 x10^6/uL (4.30-5.70); RED CELL DISTRIBUTION WIDTH 13.2 % (11.5-14.5); WHITE BLOOD COUNT 13.5 x10^3/uL (4.0-11.0)
[2020-06-15 20:52] LABS: PROTHROMBIN TIME PATIENT 13.1 SEC (11.7-14.0)
[2020-06-15 20:54] LABS: CALCIUM 8.8 mg/dL (8.5-10.1); CREATININE 0.8 mg/dL (0.7-1.3); GFR 117.8; POTASSIUM 3.8 mmol/L (3.5-5.1)
[2020-06-15 20:58] LABS: D-DIMER 1.31 ug/mlFEU (0.00-0.50)
[2020-06-15 20:59] LABS: ALBUMIN 2.9 g/dL (3.4-5.0); ALBUMIN/GLOBULIN RATIO 0.6 (1.0-1.7); TOTAL BILIRUBIN 0.5 mg/dL (0.2-1.0); TOTAL PROTEIN 7.4 g/dL (6.4-8.2)
[2020-06-15 21:00] LABS: % BANDS 2 % (0-9); % LYMPHS 15 % (24-48); % MONOS 3 % (0-10); % SEGS 80 % (35-66); PLT ESTIMATE ADEQUATE (ADEQUATE); TOXIC GRANULATION SLIGHT; TOXIC VACUOLATION SLIGHT
[2020-06-15 23:00] VITALS: BP 145/83
[2020-06-16] MEDS ORDERED: traMADol 50 MG TABLET PO PRN (00:15)
[2020-06-16] MEDS ORDERED: KETOROLAC 15 MG/ML VIAL. IVP PRN (00:15)
[2020-06-16] MEDS: guaiFENesin DM 200MG/20MG 10 ML SYRUP PO PRN ×3 (01:46→21:29)
[2020-06-16] MEDS: ACETAMINOPHEN 325 MG TABLET. PO PRN ×2 (01:46→09:14)
[2020-06-16] MEDS: methylPREDNISolone SOD SUCC PF 40 MG/ML VIAL. IV SCH ×4 (01:46→21:29)
[2020-06-16 03:00] VITALS: BP 131/77
[2020-06-16 07:00] VITALS: BP 145/73
[2020-06-16] MEDS: ENOXAPARIN 40 MG/0.4 ML SYRINGE. SQ SCH ×2 (09:13→21:29)
--- NOTE | 2020-06-16 10:23 | CONS ---
DATE OF CONSULTATION: PULMONARY CONSULTATION ATTENDING PHYSICIAN: Dr. Sanders. REASON FOR CONSULTATION: COVID pneumonia and hypoxia. HISTORY OF PRESENT ILLNESS: The patient is a 25-year-old obese male with a BMI of 31. He was diagnosed recently with COVID-19 pneumonia. He was hospitalized a couple of times. He was brought into the hospital with persistent fever, cough and myalgias and some shortness of breath. No vomiting, no diarrhea. Unable to obtain much history in detail due to his language barrier. His T-max in the hospital has been 99.9. I have reviewed the patient's chest x-ray, which shows bilateral patchy infiltrates. CT chest from 06/13 was also reviewed and was consistent with bilateral ground glass infiltrates. He is currently requiring 2 liters of oxygen. PAST MEDICAL HISTORY: COVID-19 pneumonia. PAST SURGICAL HISTORY: None. SOCIAL HISTORY: Nonsmoker. ALLERGIES: None. MEDICATIONS: Reviewed as listed in the MRAD including Solu-Medrol. REVIEW OF SYSTEMS: Unable to obtain from the patient. PHYSICAL EXAMINATION: VITAL SIGNS: Reviewed. Pulse ox 95% on 3 liters. HEENT: Visual exam done due to COVID-19 pandemic. No obvious respiratory distress, obese and no skin rash. LABORATORY DATA: Reviewed. White cell count 13.5, hemoglobin 16.4, platelets 256. BUN 13, creatinine 0.8. IMPRESSION: 1. Acute hypoxic respiratory failure secondary to COVID-19 pneumonia. 2. Abnormal chest x-ray secondary to COVID-19 pneumonia. 3. No significant tobacco history. RECOMMENDATIONS: 1. Continue present oxygen and keep saturation 94 and above. 2. Add empiric antibiotic. 3. Continue current IV steroids. 4. DVT prophylaxis at high dose. 5. We will follow the clinical course. ANTOINETTE MARINO MD DR: ANYI/triston JOB#: [id number] / [id number]
[2020-06-16 11:00] VITALS: BP 148/71
[2020-06-16] MEDS ORDERED: cefTRIAXone IV Push 1 GM VIAL. IVP SCH (11:00)
[2020-06-16] MEDS ORDERED: PIP/TAZO PER PHARMACY MC PRN (11:15)
[2020-06-16] MEDS: PIPERACILLIN/TAZOBACTAM 3.375 GM in IV NORMAL SALINE 50ML 50 ML IV SCH ×3 (12:55→23:41)
[2020-06-16] MEDS: MULTIVITAMIN with MINERAL TABLET. PO SCH (12:55)
[2020-06-16 15:00] VITALS: BP 151/70
--- NOTE | 2020-06-16 16:00 | EKG ---
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
--- NOTE | 2020-06-16 17:34 | NUR ---
SW following. Spoke with RN and reviewed chart. Pt from home. SW attempted to call into pt's room to see if pt can afford to pay for 02 if needed at discharge but there was no answer. Pt on 3l 02. Pt is self-pay. Pt on IV Zosyn. WALDO Kim to follow this patient for discharge planning.
[2020-06-16 19:00] VITALS: BP 126/66
--- NOTE | 2020-06-16 22:00 | NUR ---
Told patient that I was working on getting the Plasma ready to give him. He said he knows nothing about it and didn't talk to the doctor about it. He also said he doesn't speak good [place]ian
[2020-06-16 23:00] VITALS: BP 140/75
[2020-06-17 03:29] VITALS: BP 151/82
[2020-06-17] MEDS: PIPERACILLIN/TAZOBACTAM 3.375 GM in IV NORMAL SALINE 50ML 50 ML IV SCH (05:47)
[2020-06-17] MEDS: methylPREDNISolone SOD SUCC PF 40 MG/ML VIAL. IV SCH ×3 (05:47→22:34)
[2020-06-17 07:25] VITALS: BP 135/74
[2020-06-17] MEDS: MULTIVITAMIN with MINERAL TABLET. PO SCH (08:46)
[2020-06-17] MEDS: ENOXAPARIN 40 MG/0.4 ML SYRINGE. SQ SCH ×2 (08:46→22:33)
--- NOTE | 2020-06-17 10:47 | PDOC ---
PULMONARY PROGRESS NOTES DATE: 06/17/20 TIME: 10:43 Subjective Clinically improved today, on 2 liters, NO increased SOB or cough Vitals Vital Signs Date Time Temp Pulse Resp B/P (MAP) Pulse Ox O2 Delivery O2 Flow Rate FiO2 06/17/20 07:25 97.6 72 16 135/74 (94) 95 Nasal Cannula 3.0 97.6 Comments Visual exam preformed pt. seen during COVID- pandemic RRR No rash No edema N/C Labs Laboratory Tests Test 06/15/20 20:32 White Blood Count 13.5 x10^3/uL (4.0-11.0) Red Blood Count 5.44 x10^6/uL (4.30-5.70) Hemoglobin 16.4 g/dL (13.0-17.5) Hematocrit 46.9 % (39.0-53.0) Mean Corpuscular Volume 86 fL (79-100) Mean Corpuscular Hemoglobin 30 pg (25-35) Mean Corpuscular Hemoglobin Concent 35 g/dL (31-37) Red Cell Distribution Width 13.2 % (11.5-14.5) Platelet Count 256 x10^3/uL (140-400) Neutrophils (%) (Auto) 87 % (31-73) Lymphocytes (%) (Auto) 9 % (24-48) Monocytes (%) (Auto) 4 % (0-9) Eosinophils (%) (Auto) 0 % (0-3) Basophils (%) (Auto) 0 % (0-3) Neutrophils # (Auto) 11.6 x10^3/uL (1.8-7.7) Lymphocytes # (Auto) 1.2 x10^3/uL (1.0-4.8) Monocytes # (Auto) 0.6 x10^3/uL (0.0-1.1) Eosinophils # (Auto) 0.0 x10^3/uL (0.0-0.7) Basophils # (Auto) 0.0 x10^3/uL (0.0-0.2) Segmented Neutrophils % 80 % (35-66) Band Neutrophils % 2 % (0-9) Lymphocytes % 15 % (24-48) Monocytes % 3 % (0-10) Toxic Granulation Slight Toxic Vacuolation Slight Platelet Estimate Adequate (ADEQUATE) Prothrombin Time 13.1 SEC (11.7-14.0) Prothromb Time International Ratio 1.0 (0.8-1.1) Activated Partial Thromboplast Time 30 SEC (24-38) Fibrinogen 858 mg/dL (200-440) D-Dimer (Yue) 1.31 ug/mlFEU (0.00-0.50) Sodium Level 136 mmol/L (136-145) Potassium Level 3.8 mmol/L (3.5-5.1) Chloride Level 102 mmol/L (98-107) Carbon Dioxide Level 25 mmol/L (21-32) Anion Gap 9 (6-14) Blood Urea Nitrogen 13 mg/dL (8-26) Creatinine 0.8 mg/dL (0.7-1.3) Estimated GFR (Cockcroft-Gault) 117.8 BUN/Creatinine Ratio 16 (6-20) Glucose Level 120 mg/dL (70-99) Lactic Acid Level 1.2 mmol/L (0.4-2.0) Calcium Level 8.8 mg/dL (8.5-10.1) Total Bilirubin 0.5 mg/dL (0.2-1.0) Aspartate Amino Transf (AST/SGOT) 44 U/L (15-37) Alanine Aminotransferase (ALT/SGPT) 81 U/L (16-63) Alkaline Phosphatase 77 U/L (46-116) Creatine Kinase 51 U/L (39-308) Troponin I Quantitative < 0.017 ng/mL (0.000-0.055) Total Protein 7.4 g/dL (6.4-8.2) Albumin 2.9 g/dL (3.4-5.0) Albumin/Globulin Ratio 0.6 (1.0-1.7) Procalcitonin < 0.10 ng/mL (0.00-0.10) Medications Active Scripts Medications Dose Route/Sig Max Daily Dose Days Date Category Tessalon Perle (Benzonatate) 100 Mg Capsule 1 Cap PO TID 06/11/20 Rx Ventolin Hfa Inhaler (Albuterol Sulfate) 18 Gm Hfa.aer.ad 2 Puff INH Q4HRS PRN 06/11/20 Rx Compazine (Prochlorperazine Maleate) 10 Mg Tablet 10 Mg PO Q8-12HRS PRN 06/09/20 Rx Zithromax (Azithromycin) 250 Mg Tablet 1 Pkg PO UD 06/06/20 Rx Prednisone (Prednisone) 10 Mg Tablet 5 Tab PO DAILY 7 06/06/20 Rx Comments CXR IMPRESSION: Mild interval increase in bilateral airspace disease, consistent with history of viral pneumonitis. Impression . IMPRESSION: 1. Acute hypoxic respiratory failure secondary to COVID-19 pneumonia-- improving 2. Abnormal chest x-ray secondary to COVID-19 pneumonia. 3. No significant tobacco history. Plan . RECOMMENDATIONS: 1. Continue present oxygen and keep saturation 94 and above. 2. cont. empiric antibiotic. 3. Continue current IV steroids. 4. DVT prophylaxis at high dose. 5. We will follow the clinical course, improved today D/W ANTOINETTE MOHAN MD Jun 17, 2020 10:47
--- NOTE | 2020-06-17 11:44 | PDOC ---
[facility] PROGRESS NOTE Date of Service DOS: DATE: 06/17/20 TIME: 11:40 Chief Complaint Chief Complaint 1. Acute hypoxic respiratory failure secondary to COVID-19 pneumonia. 2. Abnormal chest x-ray secondary to COVID-19 pneumonia. 3. No significant tobacco history. History of Present Illness History of Present Illness 06/17/2020 Patient is seen and examined Patient is resting comfortably and says he feels better Charts reviewed Discussed with RN Vitals/I&O Vitals/I&O: Vital Signs Date Time Temp Pulse Resp B/P (MAP) Pulse Ox O2 Delivery O2 Flow Rate FiO2 06/17/20 07:25 97.6 72 16 135/74 (94) 95 Nasal Cannula 3.0 97.6 I & O 06/16/20 06/16/20 06/17/20 15:00 23:00 07:00 Intake Total 550 ml 300 ml Output Total 550 ml Balance 0 ml 300 ml Physical Exam General: Alert, Oriented X3, Cooperative, No acute distress Heart: Regular rate Extremities: No edema, No tenderness/swelling Skin: No significant lesion Review of Systems Review of Systems: Patient complains of fatigue and SOB, otherwise all other systems are negative. Assessment and Plan Assessmemt and Plan Problems Medical Problems: (1) COVID-19 Status: Acute (2) Pneumonia due to COVID-19 virus Status: Acute Assessment 1. Acute hypoxic respiratory failure secondary to COVID-19 pneumonia. 2. Abnormal chest x-ray secondary to COVID-19 pneumonia. 3. No significant tobacco history. Plan Respiratory isolation IV steroids IV antibiotics DVT prophylaxis Trend Labs (BP) Norvasc 10mg po/day Appreciate subspecialist input Full code Comment Review of Relevant I have reviewed the following items arthur (where applicable) has been applied. Medications: Current Medications Medications (Trade) Dose Ordered Sig/Praful Route PRN Reason Start Time Stop Time Status Last Admin Dose Admin Multivitamins (Thera M Plus) 1 tab DAILY PO 06/16/20 12:00 06/17/20 08:46 Piperacillin Sod/ Tazobactam Sod 3.375 gm/Sodium Chloride 50 ml @ 100 mls/hr Q6HRS IV 06/16/20 12:00 06/17/20 10:42 DC 06/17/20 05:47 Justicifation of Admission Dx: Justifications for Admission: Justification of Admission Dx: Yes ANDREY SPICER III DO Jun 17, 2020 11:44
[2020-06-17 11:46] VITALS: BP 129/72
--- NOTE | 2020-06-17 12:04 | HP ---
ADMIT DATE: 06/17/2020 CHIEF COMPLAINT: Shortness of breath. HISTORY OF PRESENT ILLNESS: The patient is a pleasant, healthy 25-year-old male who presented with shortness of breath. He has a cough associated myalgias that has been occurring for several days. We did a chest x-ray. It is showing infiltrates. He was also recently diagnosed with COVID-19. I discussed the case with ER physician. We are going to admit the patient with COVID protocol. PAST MEDICAL HISTORY: Recent COVID-19. ALLERGIES: None. FAMILY HISTORY: Diabetes. SOCIAL HISTORY: He does not drink, smoke or take drugs. MEDICATIONS: Reviewed, please refer to the MRAD. REVIEW OF SYSTEMS: GENERAL: No history of weight change, weakness or fevers. SKIN: No bruising, hair changes or rashes. EYES: No blurred, double or loss of vision. NOSE AND THROAT: No history of nosebleeds, hoarseness or sore throat. HEART: No history of palpitations, chest pain, or ____ shortness of breath on exertion. LUNGS: He complains of shortness of breath. GASTROINTESTINAL: Denies changes in appetite, nausea, vomiting, diarrhea or constipation. GENITOURINARY: No history of frequency, urgency, hesitancy or nocturia. NEUROLOGIC: Denies history of numbness, tingling, tremor or weakness. PSYCHIATRIC: No history of panic, anxiety or depression. ENDOCRINE: No history of heat or cold intolerance, polyuria or polydipsia. EXTREMITIES: Denies muscle weakness, joint pain, pain on walking or stiffness. PHYSICAL EXAMINATION: VITALS: Within normal limits and are stable. GENERAL: No apparent distress. Alert and oriented. HEENT: Normal cephalic atraumatic, external auditory canals are patent EYES: Extraocular muscles are intact, pupils are equally round and reactive to light and accommodation MUSCULOSKELETAL: Well developed, well nourished, good range of motion ENDOCRINE: No thyromegaly was palpated LYMPHATICS: No cervical chain or axillary nodes were noted HEMATOPOIETIC: No bruising NECK: Supple, no JVD, no thyromegaly was noted. LUNGS: He has bibasilar crackles. HEART: RRR, S1, S2 present. Peripheral pulses intact, no obvious murmurs were noted. ABDOMEN: Soft, nontender. Positive bowel sounds no organomegaly, normal bowel sounds. EXTREMITIES: Without any cyanosis, clubbing, or edema. Pedal pulses intact, Homans sign is negative. NEUROLOGIC: Normal speech, normal tone. A & O x3, moves all extremities, no obvious focal deficits. PSYCHIATRIC: Normal affect, normal mood. Stable. SKIN: No ulcerations or rashes, good skin turgor, no jaundice. VASCULAR: Good capillary refill, neurovascular bundle appears to be intact. RADIOLOGICAL DATA: Chest x-ray showing pneumonia. ASSESSMENT AND PLAN: COVID-19 pneumonia. The patient will be admitted. We will give him IV steroids, IV antibiotics, breathing treatments, oxygen, steroids, home meds, DVT prophylaxis. Full code. Consult ID, consult Pulmonary. ANDREY SPICER DO DR: WELLINGTON/triston JOB#: [id number] / [id number]
--- NOTE | 2020-06-17 14:10 | CONS ---
DATE OF CONSULTATION: 06/17/2020 REQUESTING PHYSICIAN: Herbert Sanders MD REASON FOR CONSULTATION: COVID pneumonia and hypoxia. HISTORY OF PRESENT ILLNESS: This is a 25-year-old gentleman who was diagnosed with COVID positive on 06/06/2020 as outpatient. The patient subsequently got more short of breath, hence he decided to come in. The patient had fever up to 103 about 4 days ago, but lately he has not had any fever. The patient is receiving ceftriaxone, piperacillin/tazobactam and methylprednisolone. In fact, the patient has convalescent plasma ordered on my name from yesterday. I did not see the patient yesterday and I do not know whether it was ordered somebody else's on my name or I inadvertently ordered on this patient trying to work on somebody else, but the patient actually refused, hence he has not received any convalescent plasma. The patient this morning as I am seeing for the first time is feeling much better. The patient takes out oxygen and goes to the bathroom without any difficulty and he is on 2 liters and we took it off and his oxygen saturation has been about 91%. The patient denies any fever, denies any nausea, vomiting, or diarrhea. Denies any chest pain, shortness of breath, abdominal pain, urinary symptoms or bowel symptoms. PAST MEDICAL HISTORY: Unremarkable. SOCIAL HISTORY: Negative for smoking, alcohol, or illicit drug use. ALLERGIES: No known drug allergies. CURRENT MEDICATIONS: Reviewed. REVIEW OF SYSTEMS: As per the HPI, all other systems reviewed are negative. PHYSICAL EXAMINATION: GENERAL: Alert, oriented gentleman, not in distress. VITAL SIGNS: Stable, afebrile. HEENT: NAD. NECK: Supple. LUNGS: Clear. HEART: S1, S2 regular. ABDOMEN: Benign. EXTREMITIES: No edema, cyanosis. SKIN: Unremarkable. NEUROLOGIC: The patient is alert, awake and appropriate. No focal neurologic deficit. LABORATORY DATA: White count is 13.5. BUN and creatinine is normal. His blood cultures have been negative. Chest x-ray and even chest CT done, which had shown bilateral ground glass opacities. The most recent chest x-ray has improved. IMPRESSION: 1. COVID-19 positive. 2. Bilateral pulmonary infiltrates secondary to #1. 3. Hypoxemia, which has improved. 4. Fever, which has improved. RECOMMENDATIONS: Recommend discontinue Rocephin and discontinue Zosyn. The patient can be discharged with the instruction, return if worse. Thank you very much, Dr. Sanders, for giving me the opportunity to participate in this patient's care. CHRISTINA TAYLOR MD DR: IVETH/triston JOB#: [id number] / [id number]
--- NOTE | 2020-06-17 15:02 | NUR ---
SS following up with discharge planning. SS reviewed pt chart and discussed with pt RN. COVID19 positive. Pt is currently requiring oxygen. Pt is self pay. SS will continue to follow for discharge planning.
[2020-06-17 15:17] VITALS: BP 142/72
[2020-06-17] MEDS: amLODIPine BESYLATE 10 MG TABLET PO SCH (16:21)
[2020-06-17 20:45] VITALS: BP 107/54
[2020-06-17 22:51] VITALS: BP 117/55
[2020-06-18 04:36] VITALS: BP 107/57
[2020-06-18] MEDS: methylPREDNISolone SOD SUCC PF 40 MG/ML VIAL. IV SCH (06:41)
[2020-06-18 07:00] VITALS: BP 120/71
[2020-06-18] MEDS: ENOXAPARIN 40 MG/0.4 ML SYRINGE. SQ SCH ×2 (09:55→21:08)
[2020-06-18] MEDS: MULTIVITAMIN with MINERAL TABLET. PO SCH (09:55)
[2020-06-18] MEDS: amLODIPine BESYLATE 10 MG TABLET PO SCH (09:56)
--- NOTE | 2020-06-18 11:03 | PDOC ---
PULMONARY PROGRESS NOTES DATE: 06/18/20 TIME: 10:56 Subjective Clinically improved today, continues on N/C NO increased SOB or cough, remains on afebrile Vitals Vital Signs Date Time Temp Pulse Resp B/P (MAP) Pulse Ox O2 Delivery O2 Flow Rate FiO2 06/18/20 09:56 84 120/71 06/18/20 07:00 96.7 19 94 Nasal Cannula 3.0 96.7 Comments Visual exam preformed pt. seen during COVID-19 pandemic RRR No rash No edema N/C Medications Active Scripts Medications Dose Route/Sig Max Daily Dose Days Date Category Tessalon Perle (Benzonatate) 100 Mg Capsule 1 Cap PO TID 06/11/20 Rx Ventolin Hfa Inhaler (Albuterol Sulfate) 18 Gm Hfa.aer.ad 2 Puff INH Q4HRS PRN 06/11/20 Rx Compazine (Prochlorperazine Maleate) 10 Mg Tablet 10 Mg PO Q8-12HRS PRN 06/09/20 Rx Zithromax (Azithromycin) 250 Mg Tablet 1 Pkg PO UD 06/06/20 Rx Prednisone (Prednisone) 10 Mg Tablet 5 Tab PO DAILY 7 06/06/20 Rx Comments CXR IMPRESSION: Mild interval increase in bilateral airspace disease, consistent with history of viral pneumonitis. Impression . IMPRESSION: 1. Acute hypoxic respiratory failure secondary to COVID-19 pneumonia-- improving 2. Abnormal chest x-ray secondary to COVID-19 pneumonia. 3. No significant tobacco history. 4. Hypertension Plan . RECOMMENDATIONS: 1. Continue present oxygen and keep saturation 94 and above, 2. cont. empiric antibiotic per ID, may switch to po 3. Continue steroids switch to po, full ten day course w/ taper 4. DVT prophylaxis at high dose. 5. We will follow the clinical course, improved today ok to D/C to home if able to organize home oxygen, pt. is without insurance so this could be barrier to D/C, social work to assist D/W ANTOINETTE MOHAN MD Jun 18, 2020 11:03
[2020-06-18 11:15] VITALS: BP 137/63
--- NOTE | 2020-06-18 11:27 | PDOC ---
[facility] PROGRESS NOTE Date of Service DOS: DATE: 06/18/20 TIME: 11:22 Chief Complaint Chief Complaint 1. Acute hypoxic respiratory failure secondary to COVID-19 pneumonia. 2. Abnormal chest x-ray secondary to COVID-19 pneumonia. 3. No significant tobacco history. History of Present Illness History of Present Illness 06/18/2020 Patient is seen and examined Charts reviewed Discussed with RN 06/17/2020 Patient is seen and examined Patient is resting comfortably and says he feels better Charts reviewed Discussed with RN Vitals/I&O Vitals/I&O: Vital Signs Date Time Temp Pulse Resp B/P (MAP) Pulse Ox O2 Delivery O2 Flow Rate FiO2 06/18/20 09:56 84 120/71 06/18/20 07:00 96.7 19 94 Nasal Cannula 3.0 96.7 I & O 06/17/20 06/17/20 06/18/20 15:00 23:00 07:00 Intake Total 480 ml 200 ml 400 ml Output Total 550 ml 400 ml Balance -70 ml -200 ml 400 ml Physical Exam General: Alert, Oriented X3, Cooperative, No acute distress Heart: Regular rate, No murmurs Abdomen: Normal bowel sounds Extremities: No edema, No tenderness/swelling Skin: No significant lesion Assessment and Plan Assessmemt and Plan Problems Medical Problems: (1) COVID-19 Status: Acute (2) Pneumonia due to COVID-19 virus Status: Acute Assessment 1. Acute hypoxic respiratory failure secondary to COVID-19 pneumonia. 2. Abnormal chest x-ray secondary to COVID-19 pneumonia. 3. No significant tobacco history. Plan IV steroids IV antibiotics DVT prophylaxis Respiratory isolation Discussed potential need for oxygen on discharge Continue oxygen supplementation D/C when OK with Pulmonology Comment Review of Relevant I have reviewed the following items arthur (where applicable) has been applied. Medications: Current Medications Medications (Trade) Dose Ordered Sig/Praful Route PRN Reason Start Time Stop Time Status Last Admin Dose Admin Amlodipine Besylate (Norvasc) 10 mg DAILY PO 06/17/20 12:30 06/18/20 09:56 Justicifation of Admission Dx: Justifications for Admission: Justification of Admission Dx: Yes ANDREY SPICER III DO Jun 18, 2020 11:27
--- NOTE | 2020-06-18 11:31 | DS ---
DATE OF DISCHARGE: 06/18/2020 ADMISSION DIAGNOSIS: COVID-19. DISCHARGE DIAGNOSIS: Resolving COVID-19. HOSPITAL COURSE: The patient is a pleasant 25-year-old male who presented with COVID-19 pneumonia. We admitted him, gave him broad-spectrum IV antibiotics, azithromycin, steroids, and vitamins. We consulted ID and Pulmonary. Today, I saw and examined, he is at his baseline. His blood pressures normalized, was a little high yesterday. His white count is 13, but again, he is on steroids. He has no fever. He looks great clinically. Heart tones are normal. Lungs are clear. We plan to discharge to home. DISPOSITION: Home. ACTIVITY: As tolerated. DIET: Low sodium. MEDICATIONS: Please see the MRAD. I did give him prescriptions for Z-ARNIE, Augmentin, and steroid taper. TOTAL TIME: 35 minutes. CHRISSYL Jose SPICER DO DR: WELLINGTON/triston JOB#: [id number] / [id number]
--- NOTE | 2020-06-18 11:43 | PDOC ---
Infectious Disease Note Subjective Subjective Patient is feeling better ROS ROS No nausea vomiting diarrhea chest pain shortness of breath or fever Vital Sign Vital Signs Vital Signs Date Time Temp Pulse Resp B/P (MAP) Pulse Ox O2 Delivery O2 Flow Rate FiO2 06/18/20 09:56 84 120/71 06/18/20 07:00 96.7 19 94 Nasal Cannula 3.0 96.7 Physical Exam PHYSICAL EXAM GENERAL: Alert, oriented gentleman, not in distress. VITAL SIGNS: Stable, afebrile. HEENT: NAD. NECK: Supple. LUNGS: Clear. HEART: S1, S2 regular. ABDOMEN: Benign. EXTREMITIES: No edema, cyanosis. SKIN: Unremarkable. NEUROLOGIC: The patient is alert, awake and appropriate. No focal neurologic deficit. Labs Micro Microbiology 06/15/20 Blood Culture - Preliminary, Resulted NO GROWTH AFTER 2 DAYS Objective Assessment IMPRESSION: 1. COVID-19 positive. 2. Bilateral pulmonary infiltrates secondary to #1. 3. Hypoxemia, which has improved. 4. Fever, which has improved. Plan Plan of Care Continue supportive care possible discharge soon CHRISTINA TAYLOR MD Jun 18, 2020 11:43
[2020-06-18 15:00] VITALS: BP 145/78
[2020-06-18 20:17] VITALS: BP 145/76
[2020-06-18 23:13] VITALS: BP 104/53
[2020-06-19 03:52] VITALS: BP 105/63
[2020-06-19 07:00] VITALS: BP 117/61
[2020-06-19] MEDS: amLODIPine BESYLATE 10 MG TABLET PO SCH (08:44)
[2020-06-19] MEDS: MULTIVITAMIN with MINERAL TABLET. PO SCH (08:44)
[2020-06-19] MEDS: ENOXAPARIN 40 MG/0.4 ML SYRINGE. SQ SCH ×2 (08:44→21:38)
[2020-06-19] MEDS: predniSONE 20 MG TABLET PO SCH (08:44)
--- NOTE | 2020-06-19 08:48 | PDOC ---
PULMONARY PROGRESS NOTES DATE: 06/19/20 TIME: 08:47 Subjective Clinically improved today, continues on N/C NO increased SOB or cough, remains on afebrile Vitals Vital Signs Date Time Temp Pulse Resp B/P (MAP) Pulse Ox O2 Delivery O2 Flow Rate FiO2 06/19/20 08:44 78 105/63 06/19/20 03:52 97.8 16 95 Nasal Cannula 2.0 97.8 Comments on alert no distress no paradoxical abd motion no audible wheezing RRR No rash No edema N/C Medications Active Scripts Medications Dose Route/Sig Max Daily Dose Days Date Category Tessalon Perle (Benzonatate) 100 Mg Capsule 1 Cap PO TID 06/11/20 Rx Ventolin Hfa Inhaler (Albuterol Sulfate) 18 Gm Hfa.aer.ad 2 Puff INH Q4HRS PRN 06/11/20 Rx Compazine (Prochlorperazine Maleate) 10 Mg Tablet 10 Mg PO Q8-12HRS PRN 06/09/20 Rx Zithromax (Azithromycin) 250 Mg Tablet 1 Pkg PO UD 06/06/20 Rx Prednisone (Prednisone) 10 Mg Tablet 5 Tab PO DAILY 7 06/06/20 Rx Comments CXR IMPRESSION: Mild interval increase in bilateral airspace disease, consistent with history of viral pneumonitis. Impression . IMPRESSION: 1. Acute hypoxic respiratory failure secondary to COVID-19 pneumonia-- improv ing 2. Abnormal chest x-ray secondary to COVID-19 pneumonia. 3. No significant tobacco history. 4. Hypertension Plan . RECOMMENDATIONS: 1. Continue present oxygen and keep saturation 94 and above, 2. cont. empiric antibiotic per ID, 3. prednison, full ten day course w/ taper 4. DVT prophylaxis at high dose. 5. We will follow the clinical course, improved today ok to D/C to home if able to organize home oxygen, social work to assist D/W JANA MCKINNEY MD Jun 19, 2020 08:48
[2020-06-19 11:00] VITALS: BP 119/66
[2020-06-19 15:00] VITALS: BP 100/61
--- NOTE | 2020-06-19 15:48 | PDOC ---
[facility] [facility] PROGRESS NOTE Date of Service DOS: DATE: 06/19/20 TIME: 15:42 Chief Complaint Chief Complaint Acute hypoxic respiratory failure secondary to COVID-19 pneumonia. Abnormal chest x-ray secondary to COVID-19 pneumonia. HTN - on amlodipine Obesity - counseled on weight loss History of Present Illness History of Present Illness Mr Hollis is a 25-year-old male mongolian speaking only w/ PMHx obesity admitted for hypoxia and worsening CXR findings. He was diagnosed recently with COVID-19 pneumonia on 06/06/2020 by RT PCR. He was seen in the ED a couple of times since diagnosis, not admitted previously as he was not hypoxic. He was brought into the hospital with persistent fever, cough and myalgias and some shortness of breath. No vomiting, no diarrhea. Chest x-ray shows bilateral patchy infiltrates. CT chest from 06/13 was also reviewed and was consistent with bilateral ground glass infiltrates. ID and pulmonology consulted. Started on steroids, thromboprophylaxis and antibiotics for secondary bacterial pneumonia treatment 06/17: Still on O2 06/18: Still on O2 Resting on 2 L. Cough stable. Weakness improved slightly. Vitals/I&O Vitals/I&O: Vital Signs Date Time Temp Pulse Resp B/P (MAP) Pulse Ox O2 Delivery O2 Flow Rate FiO2 06/19/20 11:00 97.7 96 20 119/66 (83) 97 Nasal Cannula 2.0 97.7 Physical Exam Physical Exam: GENERAL: Alert, oriented gentleman, not in distress. VITAL SIGNS: Stable, afebrile. HEENT: NAD. NECK: Supple. LUNGS: Clear. HEART: S1, S2 regular. ABDOMEN: Benign. EXTREMITIES: No edema, cyanosis. SKIN: Unremarkable. NEUROLOGIC: The patient is alert, awake and appropriate. No focal neurologic deficit. General: Alert, Oriented X3, Cooperative, No acute distress Heart: Regular rate, No murmurs Abdomen: Normal bowel sounds Extremities: No edema, No tenderness/swelling Skin: No significant lesion Assessment and Plan Assessmemt and Plan Problems Medical Problems: (1) COVID-19 Status: Acute (2) Pneumonia due to COVID-19 virus Status: Acute Comment Review of Relevant I have reviewed the following items arthur (where applicable) has been applied. Medications: Current Medications Medications (Trade) Dose Ordered Sig/Praful Route PRN Reason Start Time Stop Time Status Last Admin Dose Admin Prednisone (Prednisone) 40 mg DAILY PO 06/19/20 09:00 06/19/20 08:44 Justicifation of Admission Dx: Justifications for Admission: Justification of Admission Dx: Yes THEO MORRIS MD Jun 19, 2020 15:48
[2020-06-19 19:00] VITALS: BP 114/52
[2020-06-19 23:07] VITALS: BP 139/77
[2020-06-20 03:00] VITALS: BP 96/59
[2020-06-20 04:08] LABS: BASO # 0.1 x10^3/uL (0.0-0.2); BASO % 1 % (0-3); EOS % 0 % (0-3); HEMATOCRIT 49.9 % (39.0-53.0); LYMPH # 2.7 x10^3/uL (1.0-4.8); LYMPH % 24 % (24-48); MEAN CORPUSCULAR HEMOGLOBIN 29 pg (25-35); MEAN CORPUSCULAR HGB CONC 34 g/dL (31-37); MEAN CORPUSCULAR VOLUME 86 fL (79-100); MONO # 1.1 x10^3/uL (0.0-1.1); MONO % 10 % (0-9); NEUT # 7.5 x10^3/uL (1.8-7.7); NEUT % 65 % (31-73); PLATELET COUNT 387 x10^3/uL (140-400); RED BLOOD COUNT 5.79 x10^6/uL (4.30-5.70); RED CELL DISTRIBUTION WIDTH 12.7 % (11.5-14.5); WHITE BLOOD COUNT 11.5 x10^3/uL (4.0-11.0)
[2020-06-20 04:25] LABS: ALBUMIN 2.9 g/dL (3.4-5.0); ALBUMIN/GLOBULIN RATIO 0.7 (1.0-1.7); CALCIUM 9.3 mg/dL (8.5-10.1); CREATININE 0.8 mg/dL (0.7-1.3); GFR 117.8; POTASSIUM 4.1 mmol/L (3.5-5.1); TOTAL BILIRUBIN 0.5 mg/dL (0.2-1.0)
[2020-06-20 07:00] VITALS: BP 123/72
[2020-06-20] MEDS: predniSONE 20 MG TABLET PO SCH (08:28)
[2020-06-20] MEDS: MULTIVITAMIN with MINERAL TABLET. PO SCH (08:28)
[2020-06-20] MEDS: amLODIPine BESYLATE 10 MG TABLET PO SCH (08:28)
[2020-06-20] MEDS: ENOXAPARIN 40 MG/0.4 ML SYRINGE. SQ SCH ×2 (08:28→21:24)
[2020-06-20 11:00] VITALS: BP 139/67
--- NOTE | 2020-06-20 13:58 | PDOC ---
[employer] PROGRESS NOTE Date of Service DOS: DATE: 06/20/20 TIME: 13:57 Chief Complaint Chief Complaint Acute hypoxic respiratory failure secondary to COVID-19 pneumonia. Abnormal chest x-ray secondary to COVID-19 pneumonia. HTN - on amlodipine Obesity - counseled on weight loss History of Present Illness History of Present Illness Mr Hollis is a 25-year-old male mongolian speaking only w/ PMHx obesity admitted for hypoxia and worsening CXR findings. He was diagnosed recently with COVID-19 pneumonia on 06/06/2020 by RT PCR. He was seen in the ED a couple of times since diagnosis, not admitted previously as he was not hypoxic. He was brought into the hospital with persistent fever, cough and myalgias and some shortness of breath. No vomiting, no diarrhea. Chest x-ray shows bilateral patchy infiltrates. CT chest from 06/13 was also reviewed and was consistent with bilateral ground glass infiltrates. ID and pulmonology consulted. Started on steroids, thromboprophylaxis and antibiotics for secondary bacterial pneumonia treatment 06/17: Still on O2 06/18: Still on O2 06/19: Resting on 2 L. Cough stable. Weakness improved slightly. Seen resting in bed still requiring 2 L of nasal cannula oxygen. Cough improved. No abdominal pain or diarrhea. His ALT increased to 150 today. WBC down to 11. Plan: Tentative plan for 6-minute walk in the morning Repeat LFTs Continue prednisone and Lovenox therapy. Vitals/I&O Vitals/I&O: Vital Signs Date Time Temp Pulse Resp B/P (MAP) Pulse Ox O2 Delivery O2 Flow Rate FiO2 06/20/20 11:00 72 19 139/67 (91) 96 Nasal Cannula 2.0 06/20/20 07:00 97.4 97.4 I & O 06/19/20 06/19/20 06/20/20 15:00 23:00 07:00 Intake Total 1000 ml Balance 1000 ml Physical Exam Physical Exam: GENERAL: Alert, oriented gentleman, not in distress. VITAL SIGNS: Stable, afebrile. HEENT: NAD. NECK: Supple. LUNGS: Clear. HEART: S1, S2 regular. ABDOMEN: Benign. EXTREMITIES: No edema, cyanosis. SKIN: Unremarkable. NEUROLOGIC: The patient is alert, awake and appropriate. No focal neurologic deficit. General: Alert, Oriented X3, Cooperative, No acute distress Heart: Regular rate, No murmurs Abdomen: Normal bowel sounds Extremities: No edema, No tenderness/swelling Skin: No significant lesion Labs Labs: Laboratory Tests Test 06/20/20 03:30 White Blood Count 11.5 x10^3/uL (4.0-11.0) Red Blood Count 5.79 x10^6/uL (4.30-5.70) Hemoglobin 17.0 g/dL (13.0-17.5) Hematocrit 49.9 % (39.0-53.0) Mean Corpuscular Volume 86 fL (79-100) Mean Corpuscular Hemoglobin 29 pg (25-35) Mean Corpuscular Hemoglobin Concent 34 g/dL (31-37) Red Cell Distribution Width 12.7 % (11.5-14.5) Platelet Count 387 x10^3/uL (140-400) Neutrophils (%) (Auto) 65 % (31-73) Lymphocytes (%) (Auto) 24 % (24-48) Monocytes (%) (Auto) 10 % (0-9) Eosinophils (%) (Auto) 0 % (0-3) Basophils (%) (Auto) 1 % (0-3) Neutrophils # (Auto) 7.5 x10^3/uL (1.8-7.7) Lymphocytes # (Auto) 2.7 x10^3/uL (1.0-4.8) Monocytes # (Auto) 1.1 x10^3/uL (0.0-1.1) Eosinophils # (Auto) 0.0 x10^3/uL (0.0-0.7) Basophils # (Auto) 0.1 x10^3/uL (0.0-0.2) Sodium Level 137 mmol/L (136-145) Potassium Level 4.1 mmol/L (3.5-5.1) Chloride Level 102 mmol/L (98-107) Carbon Dioxide Level 28 mmol/L (21-32) Anion Gap 7 (6-14) Blood Urea Nitrogen 25 mg/dL (8-26) Creatinine 0.8 mg/dL (0.7-1.3) Estimated GFR (Cockcroft-Gault) 117.8 BUN/Creatinine Ratio 31 (6-20) Glucose Level 127 mg/dL (70-99) Calcium Level 9.3 mg/dL (8.5-10.1) Total Bilirubin 0.5 mg/dL (0.2-1.0) Aspartate Amino Transf (AST/SGOT) 26 U/L (15-37) Alanine Aminotransferase (ALT/SGPT) 150 U/L (16-63) Alkaline Phosphatase 54 U/L (46-116) Total Protein 7.0 g/dL (6.4-8.2) Albumin 2.9 g/dL (3.4-5.0) Albumin/Globulin Ratio 0.7 (1.0-1.7) Assessment and Plan Assessmemt and Plan Problems Medical Problems: (1) COVID-19 Status: Acute (2) Pneumonia due to COVID-19 virus Status: Acute Comment Review of Relevant I have reviewed the following items arthur (where applicable) has been applied. Justicifation of Admission Dx: Justifications for Admission: Justification of Admission Dx: Yes THEO MORRIS MD Jun 20, 2020 13:58
[2020-06-20 15:00] VITALS: BP 119/69
[2020-06-20 19:00] VITALS: BP 128/59
[2020-06-20 23:00] VITALS: BP 113/56
[2020-06-21 03:00] VITALS: BP 99/48
[2020-06-21 05:14] LABS: ALBUMIN/GLOBULIN RATIO 0.8 (1.0-1.7); CALCIUM 8.7 mg/dL (8.5-10.1); CREATININE 0.9 mg/dL (0.7-1.3); GFR 102.8; POTASSIUM 3.9 mmol/L (3.5-5.1); TOTAL BILIRUBIN 0.4 mg/dL (0.2-1.0); TOTAL PROTEIN 6.9 g/dL (6.4-8.2)
[2020-06-21 07:30] VITALS: BP 103/57
[2020-06-21] MEDS: ENOXAPARIN 40 MG/0.4 ML SYRINGE. SQ SCH (09:21)
[2020-06-21] MEDS: predniSONE 20 MG TABLET PO SCH (09:21)
[2020-06-21] MEDS: MULTIVITAMIN with MINERAL TABLET. PO SCH (09:21)
[2020-06-21] MEDS: amLODIPine BESYLATE 10 MG TABLET PO SCH (09:22)
[2020-06-21] MEDS ORDERED: AMOX1TAB61 PO (10:49)
--- NOTE | 2020-06-21 10:52 | PDOC3 ---
Discharge Summary Visit Information Date of Admission: Jun 15, 2020 Date of Discharge: Jun 21, 2020 Final Diagnosis Acute hypoxic respiratory failure secondary to COVID-19 pneumonia. Abnormal chest x-ray secondary to COVID-19 pneumonia. HTN - on amlodipine Obesity - counseled on weight loss Problems Medical Problems: (1) COVID-19 Status: Acute (2) Pneumonia due to COVID-19 virus Status: Acute Brief Hospital Course Allergies Allergies Coded Allergies Type Severity Reaction Last Updated Verified No Known Drug Allergies 06/06/20 No Vital Signs Vital Signs Date Time Temp Pulse Resp B/P (MAP) Pulse Ox O2 Delivery O2 Flow Rate FiO2 06/21/20 09:22 68 103/57 06/21/20 08:00 Nasal Cannula 2.0 06/21/20 07:30 97.2 18 99 97.2 Lab Results Laboratory Tests Test 06/20/20 03:30 06/21/20 03:50 White Blood Count 11.5 x10^3/uL (4.0-11.0) Red Blood Count 5.79 x10^6/uL (4.30-5.70) Hemoglobin 17.0 g/dL (13.0-17.5) Hematocrit 49.9 % (39.0-53.0) Mean Corpuscular Volume 86 fL (79-100) Mean Corpuscular Hemoglobin 29 pg (25-35) Mean Corpuscular Hemoglobin Concent 34 g/dL (31-37) Red Cell Distribution Width 12.7 % (11.5-14.5) Platelet Count 387 x10^3/uL (140-400) Neutrophils (%) (Auto) 65 % (31-73) Lymphocytes (%) (Auto) 24 % (24-48) Monocytes (%) (Auto) 10 % (0-9) Eosinophils (%) (Auto) 0 % (0-3) Basophils (%) (Auto) 1 % (0-3) Neutrophils # (Auto) 7.5 x10^3/uL (1.8-7.7) Lymphocytes # (Auto) 2.7 x10^3/uL (1.0-4.8) Monocytes # (Auto) 1.1 x10^3/uL (0.0-1.1) Eosinophils # (Auto) 0.0 x10^3/uL (0.0-0.7) Basophils # (Auto) 0.1 x10^3/uL (0.0-0.2) Sodium Level 137 mmol/L (136-145) 137 mmol/L (136-145) Potassium Level 4.1 mmol/L (3.5-5.1) 3.9 mmol/L (3.5-5.1) Chloride Level 102 mmol/L (98-107) 102 mmol/L (98-107) Carbon Dioxide Level 28 mmol/L (21-32) 27 mmol/L (21-32) Anion Gap 7 (6-14) 8 (6-14) Blood Urea Nitrogen 25 mg/dL (8-26) 25 mg/dL (8-26) Creatinine 0.8 mg/dL (0.7-1.3) 0.9 mg/dL (0.7-1.3) Estimated GFR (Cockcroft-Gault) 117.8 102.8 BUN/Creatinine Ratio 31 (6-20) 28 (6-20) Glucose Level 127 mg/dL (70-99) 132 mg/dL (70-99) Calcium Level 9.3 mg/dL (8.5-10.1) 8.7 mg/dL (8.5-10.1) Total Bilirubin 0.5 mg/dL (0.2-1.0) 0.4 mg/dL (0.2-1.0) Aspartate Amino Transf (AST/SGOT) 26 U/L (15-37) 31 U/L (15-37) Alanine Aminotransferase (ALT/SGPT) 150 U/L (16-63) 159 U/L (16-63) Alkaline Phosphatase 54 U/L (46-116) 59 U/L (46-116) Total Protein 7.0 g/dL (6.4-8.2) 6.9 g/dL (6.4-8.2) Albumin 2.9 g/dL (3.4-5.0) 3.0 g/dL (3.4-5.0) Albumin/Globulin Ratio 0.7 (1.0-1.7) 0.8 (1.0-1.7) Laboratory Tests Test 06/21/20 03:50 Sodium Level 137 mmol/L (136-145) Potassium Level 3.9 mmol/L (3.5-5.1) Chloride Level 102 mmol/L (98-107) Carbon Dioxide Level 27 mmol/L (21-32) Anion Gap 8 (6-14) Blood Urea Nitrogen 25 mg/dL (8-26) Creatinine 0.9 mg/dL (0.7-1.3) Estimated GFR (Cockcroft-Gault) 102.8 BUN/Creatinine Ratio 28 (6-20) Glucose Level 132 mg/dL (70-99) Calcium Level 8.7 mg/dL (8.5-10.1) Total Bilirubin 0.4 mg/dL (0.2-1.0) Aspartate Amino Transf (AST/SGOT) 31 U/L (15-37) Alanine Aminotransferase (ALT/SGPT) 159 U/L (16-63) Alkaline Phosphatase 59 U/L (46-116) Total Protein 6.9 g/dL (6.4-8.2) Albumin 3.0 g/dL (3.4-5.0) Albumin/Globulin Ratio 0.8 (1.0-1.7) Brief Hospital Course Mr Hollis is a 25-year-old male french speaking only w/ PMHx obesity admitted for hypoxia and worsening CXR findings. He was diagnosed recently with COVID-19 pneumonia on 06/06/2020 by RT PCR. He was seen in the ED a couple of times since diagnosis, not admitted previously as he was not hypoxic. He was brought into the hospital with persistent fever, cough and myalgias and some shortness of breath. No vomiting, no diarrhea. Chest x-ray shows bilateral patchy infiltrates. CT chest from 06/13 was also reviewed and was consistent with bilateral ground glass infiltrates. ID and pulmonology consulted. Started on steroids, thromboprophylaxis and antibiotics for secondary bacterial pneumonia treatment Seen resting in bed still requiring 2 L of nasal cannula oxygen. Cough improved. No abdominal pain or diarrhea. His ALT increased to 150 today. WBC down to 11. Discharge Information Condition at Discharge: Improved Follow Up: Weeks Disposition/Orders: D/C to Home Scheduled Amoxicillin/Potassium Clav (Augmentin 875-125 Tablet) 1 Each Tablet, 1 TAB PO BID for pneumonia for 4 Days, #8 Ref 0 Prescribed by: PEDRO PABLO ELI on 06/21/20 1049 Benzonatate (Tessalon Perle) 100 Mg Capsule, 1 CAP PO TID for cough, #21 Prescribed by: MAYELIN ADDISON MD on 06/11/20 0406 Discontinued Medications Albuterol Sulfate (Ventolin Hfa Inhaler) 18 Gm Hfa.aer.ad, 2 PUFF INH Q4HRS PRN for SHORTNESS OF BREATH, #1 Ref 0 Prescribed by: MAYELIN ADDISON MD on 06/11/20 0406 Azithromycin (Zithromax) 250 Mg Tablet, 1 PKG PO UD, #6 Prescribed by: EULALIA GIBSON D.O. on 06/06/20 1842 Prednisone (Prednisone ) 10 Mg Tablet, 5 TAB PO DAILY for 7 Days, #35 Ref 0 Prescribed by: EULALIA GIBSON D.O. on 06/06/20 184 Prochlorperazine Maleate (Compazine) 10 Mg Tablet, 10 MG PO Q8-12HRS PRN for HEADACHE, #20 Prescribed by: KARYNA GUDINO MD on 06/09/20 0718 Patient Instructions Patient Instructions > 30 min face to face Justicifation of Admission Dx: Justifications for Admission: Justification of Admission Dx: Yes PEDRO PABLO ELI MD Jun 21, 2020 10:52
[2020-06-21] MEDS ORDERED: ZINC SULFATE 220 MG CAPSULE. PO SCH (11:00)
[2020-06-21 11:09] VITALS: BP 109/65
--- NOTE | 2020-06-21 12:00 | NUR ---
Discharge Note: [facility] Discharge instructions and discharge home medications reviewed with Patient and family and a copy given. All questions have been answered and understanding verbalized. The following instructions and handouts were given: shortness of breath, pneumonia, augmentin, oxygen use at home, and COVID-19 home instuctions Discontinued lines and drains: Peripheral IV intact. Patient discharged to Home or Self Care [facility]
--- NOTE | 2020-07-23 12:55 | NUR ---
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 Spoke with Jadgish who stated he will follow up with family and have them sign a release of 02 as pt does not have a PCP and pt has already discharged from the hospital. LVM for Mell to let her know Jagdish would be calling.
== END 2020-06-21 12:00 | disposition home or self-care (01) | DRG 177 ==
LOC: ER 18:24 → 6 SOUTH 19:20
PROVIDERS: ADMIT Internal Medicine; ATTEND Internal Medicine
DX: U07.1 COVID-19 (principal); J96.01 Acute respiratory failure with hypoxia; J12.89 Other viral pneumonia; Z68.31 Body mass index [BMI] 31.0-31.9, adult; Z83.3 Family history of diabetes mellitus; I10 Essential (primary) hypertension; E66.9 Obesity, unspecified; Z79.899 Other long term (current) drug therapy
CPT/HCPCS: 36415; 71045; 80053; 82550; 83605; 84145; 84484; 85007; 85025; 85379; 85384; 85610; 85730; 86850; 86900; 86901; 87040; 93005; 96361; 96372; 96374; 96375; 99285; J0696; J1100; J1650; J1885; J2543; J2920; J7030; J7512; G0378